=== PATIENT | male | born 1945 | race American Indian/Alaskan Native ===

== ENCOUNTER 2016-11-13 21:20 | Inpatient (IN) | payer MEDICARE ==
[2016-11-13] MEDS ORDERED: PROVENTIL IH ONE (23:17)
[2016-11-13] MEDS ORDERED: ATROVENT IH ONE (23:17)
[2016-11-13] MEDS ORDERED: DELTASONE PO ONE (23:18)
--- NOTE | 2016-11-13 23:18 | XRay Report ---
FINAL REPORT EXAM: XR CHEST ROUTINE 2V HISTORY: Shortness of breath TECHNIQUE: 2 views of the chest. PRIORS: None. FINDINGS: The thoracic aorta is tortuous. Otherwise, the cardiomediastinal silhouette appears normal. The lungs are clear. The bones and soft tissues are unremarkable. IMPRESSION: No evidence of acute cardiopulmonary disease
--- NOTE | 2016-11-13 23:21 | Emergency Department Report ---
HPI - General Chief Complaint: Dyspnea/Respdistress Time Seen by Provider: 11/13/16 22:33 - HPI HPI: This is a 71-year-old Afro-[place] male presents to the emergency department from home with complaint of a three-day history of some shortness of breath. The patient is been having a cough that has not been productive but he does feel like there is some congestion. He denies any chest pain, fever, nausea, vomiting, back pain or diaphoresis. He has not taken anything for symptoms prior to presentation. He is a tobacco smoker and has been for decades. He denies any aggravating or alleviating factors. No recent travel or sick contacts at home. His primary care physician is Dr. Peng but he has not seen them regarding his symptoms. He has a past medical history of CVA with some right-sided weakness and/or deficits but he does ambulate and does not have complete right-sided hemiplegia. He also has a history of hypertension, CHF and high cholesterol. ED Past Medical Hx - Past Medical History Previous Medical History?: Yes Hx Hypertension: Yes Hx CVA: Yes Hx Congestive Heart Failure: Yes Hx Diabetes: No Hx Deep Vein Thrombosis: No Hx Pulmonary Embolism: No Hx Asthma: No Hx COPD: No Hx HIV: No Additional medical history: high chol - Surgical History Past Surgical History?: Yes Additional Surgical History: eye Sx - Social History Smoking Status: Current Every Day Smoker Substance Use Type: Marijuana - Medications Home Medications: Home Medications Medication Instructions Recorded Confirmed Last Taken Type Lisinopril [Zestril TAB] 1 tab PO DAILY 30 Days 10/15/13 11/13/16 03/05/14 Rx Simvastatin 1 tab PO HS 30 Days 10/15/13 11/13/16 03/05/14 Rx Spironolactone [Aldactone] 1 tab PO DAILY 30 Days 10/15/13 11/13/16 03/05/14 Rx Furosemide [Lasix TAB] 40 mg PO QDAY 12/17/14 11/13/16 Unknown History Metoprolol [Lopressor TAB] 50 mg PO DAILY 12/17/14 11/13/16 Unknown History Ranitidine HCl [Zantac 300 MG TAB] 150 tab PO BID 12/17/14 11/13/16 Unknown History Warfarin [Coumadin] 5 mg PO DAILY 12/17/14 11/13/16 Unknown History ED Review of Systems ROS: Stated complaint: SOB Other details as noted in HPI Comment: All other systems reviewed and negative Constitutional: denies: chills, fever Eyes: denies: eye pain, eye discharge, vision change ENT: denies: ear pain, throat pain Respiratory: cough, shortness of breath Cardiovascular: denies: chest pain, edema Gastrointestinal: denies: abdominal pain, nausea, diarrhea Genitourinary: denies: urgency, dysuria Musculoskeletal: denies: back pain, joint swelling, arthralgia Skin: denies: rash, lesions Neurological: denies: headache, weakness, paresthesias Physical Exam - Physical Exam Vital Signs: Vital Signs 11/13/16 11/13/16 22:02 23:13 Temperature 97.9 F Pulse Rate 34 L 56 L Respiratory 20 Rate Blood Pressure 126/77 O2 Sat by Pulse 98 100 Oximetry Physical Exam: GENERAL: The patient is well-developed well-nourished. HEENT: Normocephalic. Atraumatic. Extraocular motions are intact. Patient has moist mucous membranes. Pupils equal reactive to light bilaterally. NECK: Supple. Trachea is midline. CHEST/LUNGS: Mild wheezing throughout the chest. No cough heard during examination. Mild tachypnea but no accessory muscle use. There is no respiratory distress noted. HEART/CARDIOVASCULAR: Regular. Mild to moderate bradycardia. There is no gallop rub or murmur. ABDOMEN: Abdomen is soft, nontender. Patient has normal bowel sounds. There is no abdominal distention. SKIN: Skin is warm and dry. NEURO: The patient is awake, alert, and oriented. The patient is cooperative. The patient has no acute focal neurologic deficits. The patient has normal speech. MUSCULOSKELETAL: There is no tenderness. There is some atrophy to the right upper extremity. There is no limitation range of motion. Radial pulse +2 over 4 bilaterally. Cap refill less than 2 seconds. ED Course Vital Signs 11/13/16 11/13/16 22:02 23:13 Temperature 97.9 F Pulse Rate 34 L 56 L Respiratory 20 Rate Blood Pressure 126/77 O2 Sat by Pulse 98 100 Oximetry ED Medical Decision Making - Lab Data Result diagrams: 11/13/16 22:41 11/13/16 22:41 - EKG Data -: EKG Interpreted by Me EKG shows normal: sinus rhythm (with frequent PVCs and PACs), axis (left axis deviation), intervals, QRS complexes (Q waves to the inferior and anterior leads ), ST-T waves ( nonspecific ST-T changes) Rate: normal - EKG Data When compared to previous EKG there are: previous EKG unavailable Interpretation: other (sinus rhythm with frequent PVCs and PACs, low-voltage QRS , Q waves to the inferior and anterior leads, nonspecific ST-T changes) - Radiology Data Radiology results: image reviewed interpreted by me: Chest x-ray shows some mild hyperinflation of lungs and flattening of the diaphragm. There is no obvious pneumonia. No pneumothorax or pleural effusions. - Medical Decision Making 71-year-old male presents with three-day history of shortness breath. Chest x- ray does not show any pneumonia or pleural effusions but there are some signs of emphysema. This, in conjunction with the patient's long-term tobacco abuse history, raises concern for COPD or emphysema. Top of that, the patient has some mild bronchospasm. He was given a dose of steroids and albuterol/Atrovent breathing treatments. Patient's labs show a elevated BNP but the patient also has some renal insufficiency with a creatinine of 1.9. First troponin negative. The patient is therapeutic on his INR and therefore is low suspicion for a pulmonary embolism as the source of the patient's symptoms. All the patient was in the emergency department he was seen going transiently down into a heart rate of close to 30. He also had some borderline hypotension going into the 80s systolic. He seems to fluctuate and go back towards normal ranges but continues to have some transient bradycardia and hypotension. Patient ambulated throughout the emergency department and did not appear unstable but had some increased shortness of breath and worsening of his vitals. For these reasons the patient will be admitted to the hospital for further evaluation and has been accepted for admission by the hospitalist, Dr. Tenorio. - Differential Diagnosis COPD, CO, pneumonia, CHF Critical Care Time: No Critical care attestation.: If time is entered above; I have spent that time in minutes in the direct care of this critically ill patient, excluding procedure time. ED Disposition Clinical Impression: Tobacco abuse, Shortness of breath, Renal insufficiency, History of CVA ( cerebrovascular accident), Bradycardia Hypotension Qualifiers: Hypotension type: unspecified hypotension type Qualified Code(s): I95.9 - Hypotension, unspecified Disposition: DC-09 OP ADMIT IP TO THIS HOSP Is pt being admited?: Yes Condition: Fair Time of Disposition: 01:31
[2016-11-13 23:22] LABS: Basophils % (Auto) 0.7 % (0.0-1.8); Eosinophils % (Auto) 5.9 % (0.0-4.3); Hematocrit 39.6 % (35.5-45.6); Hemoglobin 12.8 gm/dl (11.8-15.2); Mean Corpuscular HGB Conc 32 % (32-34); Mean Corpuscular Hemoglobin 31 pg (28-32); Mean Corpuscular Volume 96 fl (84-94); Platelet Count 139 K/mm3 (140-440); Red Blood Count 4.12 M/mm3 (3.65-5.03); Red Cell Distribution Width 15.7 % (13.2-15.2); White Blood Count 8.4 K/mm3 (4.5-11.0)
[2016-11-13 23:38] LABS: Anion Gap 19 mmol/L; BUN/Creatinine Ratio 20.52; Blood Urea Nitrogen 39 mg/dL (9-20); Calcium 8.9 mg/dL (8.4-10.2); Carbon Dioxide 25 mmol/L (22-30); Chloride 101.9 mmol/L (98-107); Glucose 84 mg/dL (75-100); Potassium 4.9 mmol/L (3.6-5.0); Sodium 141 mmol/L (137-145)
[2016-11-13 23:49] LABS: INR 3.85 (0.87-1.13)
[2016-11-13 23:50] LABS: Partial Thromboplastin Time 45.1 Sec. (24.2-36.6)
[2016-11-14] MEDS ORDERED: NACL 0.9% 250ML 250 ML IV ONE (01:31)
[2016-11-14] MEDS ORDERED: ROBITUSSIN PO PRN (03:00)
[2016-11-14] MEDS: LEVOPHED DRIP 4 MG/NS 250 ML 4 MG/250 ML BAG IV SCH (03:29)
--- NOTE | 2016-11-14 05:06 | History and Physical Report ---
History of Present Illness Date of examination: 11/14/16 Date of admission: 11/14/16 02:20 Chief complaint: Chief complaint is shortness of breath History of present illness: History of present illness, Patient is a 71-year-old male who has been having shortness of breath at home for 3 days but denied history of chest pain, fever or chills, also patient denied history of nausea and vomiting and also denied history of dizziness but admitted to having nonproductive cough. There is no history of ankle swelling Past History Past Medical History: heart failure, hypertension, hyperlipidemia, renal failure , stroke Past Surgical History: No surgical history Social history: smoking Family history: no significant family history Medications and Allergies Allergies Allergy/AdvReac Type Severity Reaction Status Date / Time No Known Allergies Allergy Verified 12/17/14 21:26 Home Medications Medication Instructions Recorded Confirmed Last Taken Type Lisinopril [Zestril TAB] 1 tab PO DAILY 30 Days 10/15/13 11/13/16 03/05/14 Rx Simvastatin 1 tab PO HS 30 Days 10/15/13 11/13/16 03/05/14 Rx Spironolactone [Aldactone] 1 tab PO DAILY 30 Days 10/15/13 11/13/16 03/05/14 Rx Furosemide [Lasix TAB] 40 mg PO QDAY 12/17/14 11/13/16 Unknown History Metoprolol [Lopressor TAB] 50 mg PO DAILY 12/17/14 11/13/16 Unknown History Ranitidine HCl [Zantac 300 MG TAB] 150 tab PO BID 12/17/14 11/13/16 Unknown History Warfarin [Coumadin] 5 mg PO DAILY 12/17/14 11/13/16 Unknown History Active Meds: Active Medications Albuterol/Ipratropium (Duoneb 0.5 Mg-3 Mg/3 Ml Soln) 1 ampul IH QIDRT DEVON Guaifenesin (Robitussin) 200 mg PO Q4H PRN PRN Reason: Cough Heparin Sodium (Porcine) (Heparin) 5,000 unit SUB-Q Q12HR DEVON Norepinephrine (Levophed Drip 4 Mg/Ns 250 Ml) 4 mg in 250 mls @ 7.5 mls/hr IV TITR DEVON; 2 MCG/MIN PRN Reason: Protocol Last Admin: 11/14/16 03:29 Dose: 2 mcg/min, 7.5 mls/hr Methylprednisolone Sodium Succinate (Solu-Medrol) 40 mg IV Q6H DEVON Last Admin: 11/14/16 03:12 Dose: 40 mg Review of Systems Constitutional: no weight loss, no weight gain, no fever, no chills, no sweats, no night sweats, no anorexia, no fatigue, no weakness, no malaise, no lethargy, no poor appetite, no daytime sleepiness Eyes: bilateral: other (NO BILATERAL EYE SYMPTOMS) Ears, nose, mouth and throat: nasal congestion, no ear pain, no ear discharge, no tinnitis, no decreased hearing, no nose pain, no nasal discharge, no sinus pressure, no sinus pain, no bleeding gums, no dental pain, no mouth pain, no dysphagia, no hoarseness, no sore throat, no swelling in mouth, no swelling in throat, no voice changes, no post-nasal drip, no headache, no vertigo, no pain front of neck, no neck fullness/pressure, no neck lump Cardiovascular: shortness of breath, no chest pain, no orthopnea, no palpitations, no rapid/irregular heart beat, no edema, no syncope, no lightheadedness, no dyspnea on exertion, no paroxysmal nocturnal dyspnea, no claudication, no phlebitis, no high blood pressure, no leg edema, no decreased exercise tolerance Respiratory: cough, shortness of breath, congestion, no cough with sputum, no excessive sputum, no hemoptysis, no dyspnea on exertion, no wheezing, no pleurisy, no pain, no pain on inspiration, no sleep apnea, no respiratory infections, no home oxygen, no other Gastrointestinal: no abdominal pain, no nausea, no vomiting, no diarrhea, no constipation, no change in bowel habits, no hematemesis, no coffee ground emesis , no BRBPR, no melena, no hematochezia, no loss of appetite, no early satiety, no heartburn, no indigestion, no belching, no excessive gas, no jaundice, no dyspepsia/bloating, no early satiety, no lactose intolerance Genitourinary Male: no hematuria, no flank pain, no discharge, no urinary frequency, no urinary hesitancy, no nocturia, no incontinence, no erectile dysfunction, no impotence, no decreased libido, no testicular pain, no testicular lump, no difficulties fathering child, no polyuria, no urinary retention, no kidney stones Rectal: no pain, no incontinence, no bleeding, no itching, no hemorrhoids, no discharge, no flatulence Musculoskeletal: no neck pain, no shooting arm pain, no arm numbness/tingling, no low back pain, no shooting leg pain, no leg numbness/tingling, no redness of joints, no hot joints, no morning stiffness, no muscle weakness, no muscle cramps, no myalgias, no atrophy, no frequent falls, no fractures, no loss of height, no prior amputations, no arthritis Integumentary: no rash, no pruritis, no redness, no sores, no jaundice, no lesions, no darkening of skin, no depigmentation, no dryness, no brittle nails, no striae, no foot/leg ulcers Neurological: weakness, no parathesias, no numbness, no tingling, no seizures, no syncope, no tremors, no headaches, no migraines, no convulsions, no aphasia, no change in speech, no change in mentation, no confusion, no memory loss, no motor disturbance, no sensory deficit, no double vision, no loss of vision, no hearing difficulties, no burning pain Psychiatric: no anxiety, no memory loss, no change in sleep habits, no sleep disturbances, no insomnia, no hypersomnia, no change in appetite, no change in libido, no suicidal ideation, no disorientation, no hallucinations, no paranoia , no depression, no hopelessness, no anhedonia, no anxiety attacks, no difficulties concentrating, no confusion, no irritability, no sadness/ tearfullness, no mood swings Endocrine: no cold intolerance, no heat intolerance, no polyphagia, no excessive thirst, no polydipsia, no polyuria, no nocturia, no excessive sweating , no flushing, no weight change, no increase in ring/shoe/hat size, no proptosis , no deepening of the voice, no thyroid mass, no palpatations, no high blood sugars, no low blood sugars, no recent glucocorticoid use, no fatigue Hematologic/Lymphatic: no easy bruising, no easy bleeding, no lymphadenopathy, no lymphedema, no thrombophilia Allergic/Immunologic: no urticaria, no allergic rhinitis, no persistent infections, no anaphylaxis, no angioedema, no gluten intolerance, no seasonal allergies Exam - Constitutional Vitals: Temp Pulse Resp BP Pulse Ox 97.9 F 60 17 89/60 100 11/13/16 22:02 11/14/16 04:31 11/14/16 04:31 11/14/16 04:45 11/14/16 04:45 General appearance: Present: no acute distress - EENT Eyes: Present: PERRL, EOM intact, mydriasis ENT: clear oral mucosa, dentition normal, oropharyngeal erythema - Neck Neck: Present: supple, normal ROM. Absent: enlarged thyroid, masses or JVD, cervical LAD, carotid bruits - Respiratory Respiratory effort: normal - Cardiovascular Heart Sounds: Present: S1 & S2, gallop. Absent: systolic murmur, diastolic murmur - Extremities Extremities: no ischemia, No edema Peripheral Pulses: within normal limits - Abdominal General gastrointestinal: Present: soft, non-tender, non-distended, normal bowel sounds. Absent: tender, distended, rigid, hepatomegaly, splenomegaly, mass, hernia Male genitourinary: Present: deferred - Rectal Rectal Exam: deferred - Integumentary Integumentary: Present: clear, warm, dry, normal turgor. Absent: erythema, jaundice, clammy, decreased turgor - Musculoskeletal Musculoskeletal: right sided weakness - Psychiatric Psychiatric: appropriate mood/affect Results - Labs CBC & Chem 7: 11/13/16 22:41 11/13/16 22:41 Labs: Laboratory Last Values WBC 8.4 K/mm3 (4.5-11.0) 11/13/16 22:41 RBC 4.12 M/mm3 (3.65-5.03) 11/13/16 22:41 Hgb 12.8 gm/dl (11.8-15.2) 11/13/16 22:41 Hct 39.6 % (35.5-45.6) 11/13/16 22:41 MCV 96 fl (84-94) H 11/13/16 22:41 MCH 31 pg (28-32) 11/13/16 22:41 MCHC 32 % (32-34) 11/13/16 22:41 RDW 15.7 % (13.2-15.2) H 11/13/16 22:41 Plt Count 139 K/mm3 (140-440) L 11/13/16 22:41 Lymph % (Auto) 20.0 % (13.4-35.0) 11/13/16 22:41 [place] % (Auto) 11.1 % (0.0-7.3) H 11/13/16 22:41 Eos % (Auto) 5.9 % (0.0-4.3) H 11/13/16 22:41 Baso % (Auto) 0.7 % (0.0-1.8) 11/13/16 22:41 Lymph # 1.7 K/mm3 (1.2-5.4) 11/13/16 22:41 [place] # 0.9 K/mm3 (0.0-0.8) H 11/13/16 22:41 Eos # 0.5 K/mm3 (0.0-0.4) H 11/13/16 22:41 Baso # 0.1 K/mm3 (0.0-0.1) 11/13/16 22:41 Seg Neutrophils % 62.3 % (40.0-70.0) 11/13/16 22:41 Seg Neutrophils # 5.3 K/mm3 (1.8-7.7) 11/13/16 22:41 PT 38.2 Sec. (12.2-14.9) H 11/13/16 22:41 INR 3.85 (0.87-1.13) H 11/13/16 22:41 APTT 45.1 Sec. (24.2-36.6) H 11/13/16 22:41 Sodium 141 mmol/L (137-145) 11/13/16 22:41 Potassium 4.9 mmol/L (3.6-5.0) 11/13/16 22:41 Chloride 101.9 mmol/L (98-107) 11/13/16 22:41 Carbon Dioxide 25 mmol/L (22-30) 11/13/16 22:41 Anion Gap 19 mmol/L 11/13/16 22:41 BUN 39 mg/dL (9-20) H 11/13/16 22:41 Creatinine 1.9 mg/dL (0.8-1.5) H 11/13/16 22:41 Estimated GFR 42 ml/min 11/13/16 22:41 BUN/Creatinine Ratio 20.52 % 11/13/16 22:41 Glucose 84 mg/dL (75-100) 11/13/16 22:41 Calcium 8.9 mg/dL (8.4-10.2) 11/13/16 22:41 Magnesium 2.30 mg/dL (1.7-2.3) 11/13/16 22:41 Troponin T < 0.010 ng/mL (0.00-0.029) 11/14/16 01:15 NT-Pro-B Natriuret Pep 858.5 pg/mL (0-900) 11/13/16 22:41 TSH 1.720 mlU/mL (0.270-4.200) 11/13/16 22:41 Assessment and Plan - Patient Problems (1) Dyspnea Current Visit: Yes Status: Acute Qualifiers: Dyspnea type: D Plan to address problem: Patient will be admitted to ICU because of low blood pressure and will be on IV Levophed which will be titrated to keep MAP at 65, patient will have 2-D echo done in the morning and will have cardiology consult with Dr. Estevez for management of bradycardia with hypotension and history of CHF.I will be on DuoNeb Patient will have cardiac enzyme checked every 6 hours 2 more levels and will be on DuoNeb 4 times a day, patient will also be on Solu-Medrol 40 mg IV every 12 hours for management of dyspnea in a patient smokes cigarettes (2) Bradycardia Current Visit: Yes Status: Acute (3) Renal insufficiency Current Visit: Yes Status: Acute
--- NOTE | 2016-11-14 06:09 | Event Note ---
Requested by hospitalist to place a Central line in order to initiate pressors given the patient's persistent hypotension recalcitrant to IV fluid Central line note Consent was obtained verbally Location: Right femoral The site was prepped and draped in a sterile fashion Site was anesthetized with lidocaine 1% approximately 3 mL Landmarks identified and needle introduced until return of dark nonpulsatile blood Blood was obtained on first attempt Guidewire introduced using Seldinger technique and triple lumen catheter placed over guidewire There was blood return from all 3 ports Catheter was secured to patient by use of adhesive The patient tolerated procedure well There were no complications
[2016-11-14 07:47] LABS: Creatine Kinase MB 2.4 ng/mL (0.0-4.0)
[2016-11-14 07:49] LABS: Creatine Kinase 123 units/L (55-170)
[2016-11-14] MEDS ORDERED: DUONEB *Not for PRN Use IH SCH (08:00)
[2016-11-14] MEDS ORDERED: PROVENTIL IH PRN (08:05)
--- NOTE | 2016-11-14 08:39 | Consultation ---
History of Present Illness - Reason for Consult Consult date: 11/14/16 acute renal failure - History of Present Illness Mr. Curiel is a 71 yo who presents to the ED with SOB. He reports being in usual state of health until appx four days ago when he began experiencing SOB w/ 1 flight of staris. H denies chest pain, leg swelling and dizziness. He reports cough productive of clear sputum. He denies fever. While in the ED, patient was bradycardic - HR in 30s and hypotensive - SBP in 80s. He was admitted to the ICU for further management. Labs notable for SCr 1.9mg/dL. He has no known history of kidney disease. Past History Past Medical History: heart failure, hypertension, hyperlipidemia, renal failure , stroke Past Surgical History: No surgical history Social history: smoking Family history: no significant family history Medications and Allergies Allergies Allergy/AdvReac Type Severity Reaction Status Date / Time No Known Allergies Allergy Verified 12/17/14 21:26 Home Medications Medication Instructions Recorded Confirmed Last Taken Type Lisinopril [Zestril TAB] 1 tab PO DAILY 30 Days 10/15/13 11/13/16 03/05/14 Rx Simvastatin 1 tab PO HS 30 Days 10/15/13 11/13/16 03/05/14 Rx Spironolactone [Aldactone] 1 tab PO DAILY 30 Days 10/15/13 11/13/16 03/05/14 Rx Furosemide [Lasix TAB] 40 mg PO QDAY 12/17/14 11/13/16 Unknown History Metoprolol [Lopressor TAB] 50 mg PO DAILY 12/17/14 11/13/16 Unknown History Ranitidine HCl [Zantac 300 MG TAB] 150 tab PO BID 12/17/14 11/13/16 Unknown History Warfarin [Coumadin] 5 mg PO DAILY 12/17/14 11/13/16 Unknown History Active Meds: Active Medications Albuterol (Proventil) 2.5 mg IH Q4HRT PRN PRN Reason: Shortness Of Breath Albuterol/Ipratropium (Duoneb 0.5 Mg-3 Mg/3 Ml Soln) 1 ampul IH TIDRT DEVON Guaifenesin (Robitussin) 200 mg PO Q4H PRN PRN Reason: Cough Heparin Sodium (Porcine) (Heparin) 5,000 unit SUB-Q Q12HR DEVON Norepinephrine (Levophed Drip 4 Mg/Ns 250 Ml) 4 mg in 250 mls @ 7.5 mls/hr IV TITR DEVON; 2 MCG/MIN PRN Reason: Protocol Last Admin: 11/14/16 03:29 Dose: 2 mcg/min, 7.5 mls/hr Methylprednisolone Sodium Succinate (Solu-Medrol) 40 mg IV Q6H DEVON Last Admin: 11/14/16 08:36 Dose: 40 mg Exam - Vital Signs Vital signs: Vital Signs Temp Pulse BP Pulse Ox 97.9 F 34 L 126/77 98 11/13/16 22:02 11/13/16 22:02 11/13/16 22:02 11/13/16 22:02 Results - Lab Results 11/14/16 08:45 11/14/16 08:45 Most recent lab results Calcium 8.9 mg/dL (8.4-10.2) 11/13/16 22:41 Magnesium 2.30 mg/dL (1.7-2.3) 11/13/16 22:41 Assessment and Plan Impression: * Acute kidney injury likely secondary to prerenal azotemia due to hypoperfusion in setting of bradycardia/hypotension * Bradycardia * Hypotension * Congestive heart failure Plan: * No acute indication for renal replacement therapy * Continue IVF * Pressors to maintain MAP>65 * Cardiology consultation pending * Will obtain renal u/s, urine lytes and serologic work up * Avoid potential nephrotoxins
[2016-11-14 08:56] LABS: Hematocrit 34.4 % (35.5-45.6); Hemoglobin 11.5 gm/dl (11.8-15.2); Mean Corpuscular HGB Conc 33 % (32-34); Mean Corpuscular Hemoglobin 31 pg (28-32); Mean Corpuscular Volume 94 fl (84-94); Platelet Count 133 K/mm3 (140-440); Red Blood Count 3.66 M/mm3 (3.65-5.03); Red Cell Distribution Width 15.2 % (13.2-15.2); White Blood Count 6.7 K/mm3 (4.5-11.0)
[2016-11-14 09:10] LABS: BUN/Creatinine Ratio 21.25; Calcium 8.4 mg/dL (8.4-10.2); Chloride 105.7 mmol/L (98-107); Potassium 4.9 mmol/L (3.6-5.0)
[2016-11-14] MEDS ORDERED: HEPARIN SUB-Q SCH (10:00)
--- NOTE | 2016-11-14 11:23 | Consultation ---
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 Records shows a cardiac cath, done late 2012, that demonstrated no significant coronary artery disease but an ejection fraction of 10% on echocardiogram. Patient reports he declined a recommendation for ICD therapy. He also has a history of CVA and is on warfarin for anticoagulation. He presents with fatigue and shortness of breath with minimal exertion. While in the ED, patient noted hypotensive and with acute renal failure, BUN/ creatinine of 39/1.9 and admitted for treatment. He is currently in the CCU on pressor support. A chest x-ray reports no acute cardiopulmonary process. His initial ECG shows a sinus bradycardia with frequent PACs and PVCs thus this cardiac consultation. Patient is currently resting in bed and appears comfortable. He denies palpitations and dizziness. There is no chest pain. Laboratory studies shows normal TSH, a normal magnesium and a normal serum potassium. INR of 3.85. Past History Past Medical History: heart failure, hypertension, hyperlipidemia, stroke Past Surgical History: No surgical history Social history: smoking Family history: no significant family history Medications and Allergies Allergies Allergy/AdvReac Type Severity Reaction Status Date / Time No Known Allergies Allergy Verified 12/17/14 21:26 Home Medications Medication Instructions Recorded Confirmed Last Taken Type Lisinopril [Zestril TAB] 1 tab PO DAILY 30 Days 10/15/13 11/13/16 03/05/14 Rx Simvastatin 1 tab PO HS 30 Days 10/15/13 11/13/16 03/05/14 Rx Spironolactone [Aldactone] 1 tab PO DAILY 30 Days 10/15/13 11/13/16 03/05/14 Rx Furosemide [Lasix TAB] 40 mg PO QDAY 12/17/14 11/13/16 Unknown History Metoprolol [Lopressor TAB] 50 mg PO DAILY 12/17/14 11/13/16 Unknown History Ranitidine HCl [Zantac 300 MG TAB] 150 tab PO BID 12/17/14 11/13/16 Unknown History Warfarin [Coumadin] 5 mg PO DAILY 12/17/14 11/13/16 Unknown History Active Meds: Active Medications Albuterol (Proventil) 2.5 mg IH Q4HRT PRN PRN Reason: Shortness Of Breath Albuterol/Ipratropium (Duoneb 0.5 Mg-3 Mg/3 Ml Soln) 1 ampul IH TIDRT DEVON Guaifenesin (Robitussin) 200 mg PO Q4H PRN PRN Reason: Cough Heparin Sodium (Porcine) (Heparin) 5,000 unit SUB-Q Q12HR DEVON Norepinephrine (Levophed Drip 4 Mg/Ns 250 Ml) 4 mg in 250 mls @ 7.5 mls/hr IV TITR DEVON; 2 MCG/MIN PRN Reason: Protocol Last Admin: 11/14/16 03:29 Dose: 2 mcg/min, 7.5 mls/hr Methylprednisolone Sodium Succinate (Solu-Medrol) 40 mg IV Q6H DEVON Last Admin: 11/14/16 08:36 Dose: 40 mg Physical Examination Vital Signs Temp Pulse BP Pulse Ox 97.9 F 34 L 126/77 98 11/13/16 22:02 11/13/16 22:02 11/13/16 22:02 11/13/16 22:02 General appearance: no acute distress HEENT: Positive: PERRL Neck: Positive: trachea midline Cardiac: Positive: Irregularly Regular Lungs: Positive: Decreased Breath Sounds Neuro: Positive: Grossly Intact Results 11/14/16 08:45 11/14/16 08:45 Cardiac Enzymes 11/14/16 Range/Units 07:03 CK-MB (CK-2) 2.4 (0.0-4.0) ng/mL CBC 11/14/16 Range/Units 08:45 WBC 6.7 (4.5-11.0) K/mm3 RBC 3.66 (3.65-5.03) M/mm3 Hgb 11.5 L (11.8-15.2) gm/dl Hct 34.4 L (35.5-45.6) % Plt Count 133 L (140-440) K/mm3 Comprehensive Metabolic Panel 11/14/16 Range/Units 08:45 Sodium 140 (137-145) mmol/L Potassium 4.9 (3.6-5.0) mmol/L Chloride 105.7 (98-107) mmol/L Carbon Dioxide 22 (22-30) mmol/L BUN 34 H (9-20) mg/dL Creatinine 1.6 H (0.8-1.5) mg/dL Glucose 171 H (75-100) mg/dL Calcium 8.4 (8.4-10.2) mg/dL Assessment and Plan Hypotension on pressor support Acute renal failure Dilated CMP EF 10-15% on echo 2013. Patient previously declined ICD therapy. Prior CVA on warfarin as an outpatient INR 3.85 on presentation Sinus bradycardia with frequent PVCs and PACs pt remains asymptomatic normal TSH and Magnesium
[2016-11-14 12:22] LABS: Bilirubin,Urine NEG (Negative); Blood,Urine NEG (Negative); Ketones,Urine NEG (Negative); Leukocyte Esterase,Urine MOD (Negative); Mucus,Urine 2+ /HPF; Nitrite,Urine NEG (Negative); Protein,Urine <15 mg/dL mg/dL (Negative); Urobilinogen,Urine < 2.0 mg/dL (<2.0)
--- NOTE | 2016-11-14 12:33 | Consultation ---
History of Present Illness Consult date: 11/14/16 Requesting physician: NGHIA CLARKE History of present illness: PULMONARY/CCM CONSULT NOTE (Full dictation # [id number]) Please see dictated notes for full details A&P: Acute (likely on Chronic) Respiratory Failure Symptomatic Bradycardia Atrial Fibrillation with slow VR Acute COPD exacerbation YURI with pre-renal azotemia UTI - Volume resuscitation - wean of levophed for MAP >/= 65mmHg - hutchinson culture (? occult sepsis) - begin rocephin & zithromax (re UTI also) - add LABA - adjust solumedrol - continue GI prophylaxis - d/c heparin ......thanks for the consult ....we will follow along Past History Past Medical History: heart failure, hypertension, hyperlipidemia, renal failure , stroke Past Surgical History: No surgical history Social history: smoking Family history: no significant family history Medications and Allergies Allergies Allergy/AdvReac Type Severity Reaction Status Date / Time No Known Allergies Allergy Verified 12/17/14 21:26 Home Medications Medication Instructions Recorded Confirmed Last Taken Type Lisinopril [Zestril TAB] 1 tab PO DAILY 30 Days 10/15/13 11/13/16 03/05/14 Rx Simvastatin 1 tab PO HS 30 Days 10/15/13 11/13/16 03/05/14 Rx Spironolactone [Aldactone] 1 tab PO DAILY 30 Days 10/15/13 11/13/16 03/05/14 Rx Furosemide [Lasix TAB] 40 mg PO QDAY 12/17/14 11/13/16 Unknown History Metoprolol [Lopressor TAB] 50 mg PO DAILY 12/17/14 11/13/16 Unknown History Ranitidine HCl [Zantac 300 MG TAB] 150 tab PO BID 12/17/14 11/13/16 Unknown History Warfarin [Coumadin] 5 mg PO DAILY 12/17/14 11/13/16 Unknown History Active Meds: Active Medications Albuterol (Proventil) 2.5 mg IH Q4HRT PRN PRN Reason: Shortness Of Breath Albuterol/Ipratropium (Duoneb 0.5 Mg-3 Mg/3 Ml Soln) 1 ampul IH TIDRT DEVON Guaifenesin (Robitussin) 200 mg PO Q4H PRN PRN Reason: Cough Heparin Sodium (Porcine) (Heparin) 5,000 unit SUB-Q Q12HR DEVON Norepinephrine (Levophed Drip 4 Mg/Ns 250 Ml) 4 mg in 250 mls @ 7.5 mls/hr IV TITR DEVON; 2 MCG/MIN PRN Reason: Protocol Last Admin: 11/14/16 03:29 Dose: 2 mcg/min, 7.5 mls/hr Methylprednisolone Sodium Succinate (Solu-Medrol) 40 mg IV Q6H DEVON Last Admin: 11/14/16 08:36 Dose: 40 mg Physical Examination Vital signs: Vital Signs Temp Pulse BP Pulse Ox 97.9 F 34 L 126/77 98 11/13/16 22:02 11/13/16 22:02 11/13/16 22:02 11/13/16 22:02 Results - Laboratory Findings CBC and BMP: 11/14/16 08:45 11/14/16 08:45 PT/INR, D-dimer PT 38.2 Sec. (12.2-14.9) H 11/13/16 22:41 INR 3.85 (0.87-1.13) H 11/13/16 22:41 Abnormal lab findings: Abnormal Labs 11/14/16 11/14/16 08:45 08:45 Hgb 11.5 L Hct 34.4 L Plt Count 133 L BUN 34 H Creatinine 1.6 H Glucose 171 H
[2016-11-14] MEDS: DUONEB *Not for PRN Use IH SCH ×2 (14:42→20:08)
[2016-11-14 16:43] LABS: Creatine Kinase MB 2.3 ng/mL (0.0-4.0)
[2016-11-14 16:44] LABS: Creatine Kinase 115 units/L (55-170)
[2016-11-14] MEDS ORDERED: NACL 0.9% 1000 ML 1,000 ML IV SCH (17:00)
[2016-11-14] MEDS: ZITHROMAX PO SCH (17:29)
[2016-11-14] MEDS: ROCEPHIN/NS 1 GM/50 ML 1 GM/50 ML BAG IV SCH (17:30)
[2016-11-14 19:01] LABS: ISTAT Base Excess -4; ISTAT HCO3 21.9; ISTAT PCO2 38.8 (35-45); ISTAT PO2 78 (80-105); ISTAT SO2 95; ISTAT TCO2 23
[2016-11-14] MEDS: BROVANA NEBU IH SCH (20:10)
[2016-11-14] MEDS: PEPCID PO SCH (21:15)
[2016-11-14] MEDS: ZOCOR PO SCH (21:15)
[2016-11-14] MEDS ORDERED: RANITIDINE HCL PO SCH (22:00)
[2016-11-15 06:05] LABS: Hematocrit 32.5 % (35.5-45.6); Hemoglobin 10.4 gm/dl (11.8-15.2); Mean Corpuscular HGB Conc 32 % (32-34); Mean Corpuscular Hemoglobin 30 pg (28-32); Mean Corpuscular Volume 94 fl (84-94); Platelet Count 124 K/mm3 (140-440); Red Blood Count 3.46 M/mm3 (3.65-5.03); Red Cell Distribution Width 15.3 % (13.2-15.2); White Blood Count 12.4 K/mm3 (4.5-11.0)
[2016-11-15 06:15] LABS: INR 3.25 (0.87-1.13)
[2016-11-15 06:47] LABS: Anion Gap 18 mmol/L; Blood Urea Nitrogen 29 mg/dL (9-20); Calcium 8.4 mg/dL (8.4-10.2); Carbon Dioxide 19 mmol/L (22-30); Chloride 107.6 mmol/L (98-107); Glucose 114 mg/dL (75-100); Sodium 140 mmol/L (137-145)
--- NOTE | 2016-11-15 08:12 | Progress Note ---
Assessment and Plan heart failure -Current echocardiogram shows a left ventricular systolic ejection fraction of 25-30%. ECG is a sinus rhythm with frequent PVCs. The patient previously declined ICD therapy. Start BB and ACEi when allowable. Ween pressors as tolerated. hypertension - blood pressure currently low. Supported by pressor therapy. Ween as tolerated. hyperlipidemia - statin therapy recommended Acute renal failure - management per nephrology stroke - ASA and statin therapy recommended. Subjective Date of service: 11/15/16 Interval history: No acute events. Resting comfortably. No chest pain or SOB. Objective Vital Signs Temp Pulse Pulse Resp Resp BP Pulse Ox 11/15/16 07:15 53 L 17 87/64 100 11/15/16 07:00 60 18 92/63 100 11/15/16 06:45 51 L 17 94/63 100 11/15/16 06:30 56 L 17 91/60 100 11/15/16 06:15 53 L 17 86/60 100 11/15/16 06:00 61 16 85/60 100 11/15/16 05:45 51 L 18 90/62 100 11/15/16 05:30 51 L 20 89/58 100 11/15/16 05:15 48 L 23 92/57 100 11/15/16 05:00 50 L 18 92/61 100 11/15/16 04:46 54 L 17 101/55 100 11/15/16 04:30 52 L 15 96/63 100 11/15/16 04:15 46 L 11 L 97/64 100 11/15/16 04:00 56 L 16 90/55 86 11/15/16 03:47 98 F 11/15/16 03:45 45 L 13 90/55 97 11/15/16 03:30 54 L 12 87/59 100 11/15/16 03:15 49 L 16 88/58 100 11/15/16 03:00 49 L 15 85/57 100 11/15/16 02:45 45 L 17 89/56 99 11/15/16 02:30 46 L 18 91/60 100 11/15/16 02:15 48 L 18 90/59 100 11/15/16 02:00 50 L 11 L 88/58 100 11/15/16 01:45 54 L 16 85/58 100 11/15/16 01:30 51 L 17 87/54 100 11/15/16 01:15 49 L 26 H 88/57 100 11/15/16 01:00 52 L 17 86/58 100 11/15/16 00:45 53 L 17 83/56 100 11/15/16 00:30 51 L 16 92/60 100 11/15/16 00:15 51 L 19 88/58 99 11/15/16 00:00 98.1 F 49 L 21 85/54 100 11/14/16 23:45 61 14 96/62 100 11/14/16 23:30 52 L 23 96/62 99 11/14/16 23:15 49 L 18 88/60 100 11/14/16 23:00 47 L 19 85/57 100 11/14/16 22:45 56 L 26 H 95/63 99 11/14/16 22:30 63 15 92/68 99 11/14/16 22:15 53 L 19 81/57 98 11/14/16 22:00 53 L 20 86/51 100 11/14/16 21:57 53 L 21 96/32 100 11/14/16 21:45 61 21 96/32 100 11/14/16 21:30 57 L 20 97/57 100 11/14/16 21:15 52 L 21 95/63 100 11/14/16 21:00 56 L 20 90/61 100 11/14/16 20:45 62 13 87/63 100 11/14/16 20:30 57 L 16 85/58 100 11/14/16 20:15 56 L 15 86/58 100 11/14/16 20:12 99 11/14/16 20:00 98.6 F 54 L 54 L 11 L 16 95/61 98 11/14/16 19:45 73 15 105/69 95 11/14/16 19:31 65 13 96/63 98 11/14/16 19:15 61 15 106/66 99 11/14/16 19:01 79 9 L 107/80 100 11/14/16 18:49 99 11/14/16 18:45 52 L 13 86/60 100 11/14/16 18:30 56 L 19 89/60 98 11/14/16 18:15 55 L 25 H 96/62 99 11/14/16 18:00 56 L 19 93/65 99 11/14/16 17:45 58 L 29 H 97/72 98 07/03/17 17:30 51 L 22 95/69 100 11/14/16 17:15 60 26 H 101/72 99 11/14/16 17:00 67 25 H 107/75 77 L 11/14/16 16:45 97.9 F 72 22 113/72 80 L 11/14/16 16:30 54 L 13 108/69 99 11/14/16 16:15 53 L 25 H 92/65 99 11/14/16 16:00 58 L 11 L 101/71 94 11/14/16 15:45 97.9 F 63 14 83/56 98 11/14/16 15:30 55 L 18 92/66 98 11/14/16 15:15 50 L 18 93/63 98 11/14/16 15:00 51 L 18 97/66 98 11/14/16 14:59 58 L 24 11/14/16 14:45 52 L 20 97/66 100 11/14/16 14:42 51 L 20 11/14/16 14:30 57 L 11 L 104/70 100 11/14/16 14:15 51 L 13 98/68 97 11/14/16 14:00 52 L 16 97/65 98 11/14/16 13:45 50 L 26 H 89/54 98 11/14/16 13:30 61 14 89/62 99 11/14/16 13:15 52 L 22 91/62 70 L 11/14/16 13:00 59 L 25 H 86/59 99 11/14/16 12:45 49 L 29 H 71/33 100 11/14/16 12:30 51 L 11 L 98/66 100 11/14/16 12:15 66 20 108/75 100 11/14/16 12:00 61 23 107/79 100 11/14/16 11:45 52 L 18 92/66 99 11/14/16 11:30 46 L 23 91/60 100 11/14/16 11:25 97.6 F 11/14/16 11:15 52 L 29 H 83/57 98 11/14/16 11:00 51 L 17 84/55 100 11/14/16 10:45 53 L 13 80/55 99 11/14/16 10:31 61 20 91/60 100 11/14/16 10:15 67 11 L 99/63 99 11/14/16 10:00 67 17 92/53 100 11/14/16 09:45 48 L 20 90/61 100 11/14/16 09:30 59 L 8 L 96/67 100 11/14/16 09:15 60 14 91/67 100 11/14/16 09:01 56 L 21 74/39 100 11/14/16 08:45 51 L 9 L 99/63 100 11/14/16 08:30 64 17 92/64 100 11/14/16 08:15 46 L 18 94/65 100 - Physical Examination HEENT: Positive: PERRL Neck: Positive: trachea midline Cardiac: Positive: Reg Rate and Rhythm, S1/S2 Lungs: Positive: Other (course breath sounds bilaterally) Neuro: Positive: Grossly Intact Abdomen: Positive: Soft, Active Bowel Sounds Extremities: Present: normal - Labs and Meds Cardiac Enzymes 11/14/16 Range/Units 12:00 CK-MB (CK-2) 2.3 (0.0-4.0) ng/mL Coagulation 11/15/16 Range/Units 05:20 PT 33.4 H (12.2-14.9) Sec. INR 3.25 H (0.87-1.13) CBC 11/14/16 11/15/16 Range/Units 08:45 05:20 WBC 6.7 12.4 H (4.5-11.0) K/mm3 RBC 3.66 3.46 L (3.65-5.03) M/mm3 Hgb 11.5 L 10.4 L (11.8-15.2) gm/dl Hct 34.4 L 32.5 L (35.5-45.6) % Plt Count 133 L 124 L (140-440) K/mm3 Lymph # 0.8 L (1.2-5.4) K/mm3 Wake # 1.0 H (0.0-0.8) K/mm3 Eos # 0.0 (0.0-0.4) K/mm3 Baso # 0.0 (0.0-0.1) K/mm3 Comprehensive Metabolic Panel 11/14/16 11/15/16 Range/Units 08:45 05:20 Sodium 140 140 (137-145) mmol/L Potassium 4.9 5.0 (3.6-5.0) mmol/L Chloride 105.7 107.6 H (98-107) mmol/L Carbon Dioxide 22 19 L (22-30) mmol/L BUN 34 H 29 H (9-20) mg/dL Creatinine 1.6 H 1.3 (0.8-1.5) mg/dL Glucose 171 H 114 H (75-100) mg/dL Calcium 8.4 8.4 (8.4-10.2) mg/dL
[2016-11-15] MEDS: BROVANA NEBU IH SCH ×2 (09:16→19:24)
[2016-11-15] MEDS: DUONEB *Not for PRN Use IH SCH ×3 (09:16→19:24)
[2016-11-15] MEDS: ZITHROMAX PO SCH (09:30)
[2016-11-15] MEDS: PEPCID PO SCH ×2 (09:30→22:24)
[2016-11-15] MEDS: ROCEPHIN/NS 1 GM/50 ML 1 GM/50 ML BAG IV SCH (09:31)
[2016-11-15] MEDS ORDERED: TYLENOL PO PRN (09:33)
--- NOTE | 2016-11-15 09:46 | Ultrasound Report ---
ULTRASOUND RENAL BILATERAL HISTORY: Acute renal insufficiency. TECHNIQUE: transabdominal ultrasound with color Doppler interrogation. FINDINGS: The right kidney measures 9.3 x 4.0 x 4.2cm. Right renal cortex: 1.5cm. The left kidney measures 9.4 x 6.2 x 3.7cm. Left renal cortex: 1.4cm. Both kidneys are normal size and position but demonstrate increased parenchymal echotexture consistent with nonspecific renal parenchymal disease. There are bilateral renal cysts. There are 3 cysts in the mid to superior right kidney ranging from 0.9 cm to 2.7 cm. There are 4 cysts in the mid to inferior left kidney ranging from 0.9 cm to 1.4 cm. No evidence for hypervascular mass, shadowing calculus, hydronephrosis or perinephric fluid. Images through the bladder are unremarkable. There is however a rounded soft tissue masslike structure measuring up to 9.5 cm to the right of the bladder. I cannot exclude a mass. Consider further evaluation with CT with IV contrast if renal function allows. IMPRESSION: Renal parenchymal disease. Bilateral renal cysts. Questionable mass adjacent to the bladder as outlined above. Further imaging is recommended.
--- NOTE | 2016-11-15 13:04 | Progress Note ---
Assessment and Plan Impression: * Acute kidney injury likely secondary to prerenal azotemia due to hypoperfusion in setting of bradycardia/hypotension * Bradycardia * Hypotension * Congestive heart failure - LVEF 25-30% * Questionable bladder mass Plan: * No acute indication for renal replacement therapy. Renal function improved * Cardiology recommendations reviewed * Will need CT abd/pelvis re: ?bladder mass * Pressors to maintain MAP>65 * Avoid potential nephrotoxins Subjective Date of service: 11/15/16 Interval history: Patient has no complaints Objective - Vital Signs Vital signs: Vital Signs - 12hr 11/15/16 11/15/16 11/15/16 01:15 01:30 01:45 Temperature Pulse Rate 49 L 51 L 54 L Pulse Rate [ Bilateral Throughout] Respiratory 26 H 17 16 Rate Respiratory Rate [Bilateral Throughout] Blood Pressure 88/57 87/54 85/58 O2 Sat by Pulse 100 100 100 Oximetry 11/15/16 11/15/16 11/15/16 02:00 02:15 02:30 Temperature Pulse Rate 50 L 48 L 46 L Pulse Rate [ Bilateral Throughout] Respiratory 11 L 18 18 Rate Respiratory Rate [Bilateral Throughout] Blood Pressure 88/58 90/59 91/60 O2 Sat by Pulse 100 100 100 Oximetry 11/15/16 11/15/16 11/15/16 02:45 03:00 03:15 Temperature Pulse Rate 45 L 49 L 49 L Pulse Rate [ Bilateral Throughout] Respiratory 17 15 16 Rate Respiratory Rate [Bilateral Throughout] Blood Pressure 89/56 85/57 88/58 O2 Sat by Pulse 99 100 100 Oximetry 11/15/16 11/15/16 11/15/16 03:30 03:45 03:47 Temperature 98 F Pulse Rate 54 L 45 L Pulse Rate [ Bilateral Throughout] Respiratory 12 13 Rate Respiratory Rate [Bilateral Throughout] Blood Pressure 87/59 90/55 O2 Sat by Pulse 100 97 Oximetry 11/15/16 11/15/16 11/15/16 04:00 04:15 04:30 Temperature Pulse Rate 56 L 46 L 52 L Pulse Rate [ Bilateral Throughout] Respiratory 16 11 L 15 Rate Respiratory Rate [Bilateral Throughout] Blood Pressure 90/55 97/64 96/63 O2 Sat by Pulse 86 100 100 Oximetry 11/15/16 11/15/16 11/15/16 04:46 05:00 05:15 Temperature Pulse Rate 54 L 50 L 48 L Pulse Rate [ Bilateral Throughout] Respiratory 17 18 23 Rate Respiratory Rate [Bilateral Throughout] Blood Pressure 101/55 92/61 92/57 O2 Sat by Pulse 100 100 100 Oximetry 11/15/16 11/15/16 11/15/16 05:30 05:45 06:00 Temperature Pulse Rate 51 L 51 L 61 Pulse Rate [ Bilateral Throughout] Respiratory 20 18 16 Rate Respiratory Rate [Bilateral Throughout] Blood Pressure 89/58 90/62 85/60 O2 Sat by Pulse 100 100 100 Oximetry 11/15/16 11/15/16 11/15/16 06:15 06:30 06:45 Temperature Pulse Rate 53 L 56 L 51 L Pulse Rate [ Bilateral Throughout] Respiratory 17 17 17 Rate Respiratory Rate [Bilateral Throughout] Blood Pressure 86/60 91/60 94/63 O2 Sat by Pulse 100 100 100 Oximetry 11/15/16 11/15/16 11/15/16 07:00 07:15 07:30 Temperature Pulse Rate 60 53 L 57 L Pulse Rate [ Bilateral Throughout] Respiratory 18 17 15 Rate Respiratory Rate [Bilateral Throughout] Blood Pressure 92/63 87/64 91/63 O2 Sat by Pulse 100 100 Oximetry 11/15/16 11/15/16 11/15/16 07:45 08:00 08:16 Temperature 98.0 F Pulse Rate 50 L 47 L 59 L Pulse Rate [ Bilateral Throughout] Respiratory 20 16 16 Rate Respiratory Rate [Bilateral Throughout] Blood Pressure 92/63 91/64 108/66 O2 Sat by Pulse 100 100 100 Oximetry 11/15/16 11/15/16 11/15/16 08:30 08:45 09:16 Temperature Pulse Rate 56 L 49 L Pulse Rate [ 53 L Bilateral Throughout] Respiratory 14 18 Rate Respiratory 18 Rate [Bilateral Throughout] Blood Pressure 98/65 94/65 O2 Sat by Pulse 99 99 Oximetry 11/15/16 11/15/16 09:17 09:30 Temperature Pulse Rate Pulse Rate [ 52 L Bilateral Throughout] Respiratory Rate Respiratory 18 Rate [Bilateral Throughout] Blood Pressure O2 Sat by Pulse 100 Oximetry - General Appearance General appearance: well-developed, well-nourished, frail EENT: ATNC Respiratory: Present: Clear to Ascultation Cardiology: bradycardia Gastrointestinal: normal, no tenderness, no distended Integumentary: no rash Musculoskeletal: other (no edema) Psychiatric: cooperative - Lab 11/15/16 05:20 11/15/16 05:20 Most recent lab results Calcium 8.4 mg/dL (8.4-10.2) 11/15/16 05:20 Phosphorus 2.60 mg/dL (2.5-4.5) 11/15/16 05:20 Magnesium 2.10 mg/dL (1.7-2.3) 11/15/16 05:20 Urine Creatinine 148.5 mg/dL (0.1-20.0) H 11/14/16 11:45 Urine Sodium 66 mEq/L 11/14/16 11:45
--- NOTE | 2016-11-15 13:40 | Progress Note ---
Assessment and Plan - Patient Problems (1) Acute exacerbation of chronic obstructive pulmonary disease (COPD) Current Visit: Yes Status: Acute Plan to address problem: - continue systemic steroids which may also help with blood pressures - CXR shows COPD and barrel chest noted - continue supplemental oxygen to keep sats > 94% - will need outpatient PFT's and pulmonary clinic f/up (2) Bradycardia Current Visit: Yes Status: Acute Plan to address problem: - remains on levophed drip - avoid beta blockade - per cardiology (3) Hypotension Current Visit: Yes Status: Acute Qualifiers: Hypotension type: unspecified hypotension type Trimester: T Qualified Code(s): I95.9 - Hypotension, unspecified Plan to address problem: - will add midodrine - wean off levophed thereafter - will begin dobutrex if still pressor dependent after midodrine added while watching for arrythmia's (4) History of CVA (cerebrovascular accident) Current Visit: Yes Status: Chronic Plan to address problem: - no new focal infiltrates (5) Non-ischemic cardiomyopathy Current Visit: No Status: Chronic Plan to address problem: - as above - per cardiology otherwise (6) Discharge planning issues Current Visit: Yes Status: Acute Plan to address problem: - remains critically ill on life sustaining interventions including vasopressors and at risk for further deterioration including ..30' CCT Subjective Date of service: 11/15/16 Principal diagnosis: Symptomatic Bradycardia; Acute COPD exacerbation; YURI Interval history: Seen and examined at bedside; 24 hour events reviewed; nursing and respiratory care staff consulted; no adverse overnight events reported to me; remains on levophed at 2mics/min but not tolerating weaning; denies acute chest pains or increased SOB; no N/V/F/C Objective Vital Signs - 12hr 11/15/16 11/15/16 11/15/16 01:45 02:00 02:15 Temperature Pulse Rate 54 L 50 L 48 L Pulse Rate [ Bilateral Throughout] Respiratory 16 11 L 18 Rate Respiratory Rate [Bilateral Throughout] Blood Pressure 85/58 88/58 90/59 O2 Sat by Pulse 100 100 100 Oximetry 11/15/16 11/15/16 11/15/16 02:30 02:45 03:00 Temperature Pulse Rate 46 L 45 L 49 L Pulse Rate [ Bilateral Throughout] Respiratory 18 17 15 Rate Respiratory Rate [Bilateral Throughout] Blood Pressure 91/60 89/56 85/57 O2 Sat by Pulse 100 99 100 Oximetry 11/15/16 11/15/16 11/15/16 03:15 03:30 03:45 Temperature Pulse Rate 49 L 54 L 45 L Pulse Rate [ Bilateral Throughout] Respiratory 16 12 13 Rate Respiratory Rate [Bilateral Throughout] Blood Pressure 88/58 87/59 90/55 O2 Sat by Pulse 100 100 97 Oximetry 11/15/16 11/15/16 11/15/16 03:47 04:00 04:15 Temperature 98 F Pulse Rate 56 L 46 L Pulse Rate [ Bilateral Throughout] Respiratory 16 11 L Rate Respiratory Rate [Bilateral Throughout] Blood Pressure 90/55 97/64 O2 Sat by Pulse 86 100 Oximetry 11/15/16 11/15/16 11/15/16 04:30 04:46 05:00 Temperature Pulse Rate 52 L 54 L 50 L Pulse Rate [ Bilateral Throughout] Respiratory 15 17 18 Rate Respiratory Rate [Bilateral Throughout] Blood Pressure 96/63 101/55 92/61 O2 Sat by Pulse 100 100 100 Oximetry 11/15/16 11/15/16 11/15/16 05:15 05:30 05:45 Temperature Pulse Rate 48 L 51 L 51 L Pulse Rate [ Bilateral Throughout] Respiratory 23 20 18 Rate Respiratory Rate [Bilateral Throughout] Blood Pressure 92/57 89/58 90/62 O2 Sat by Pulse 100 100 100 Oximetry 11/15/16 11/15/16 11/15/16 06:00 06:15 06:30 Temperature Pulse Rate 61 53 L 56 L Pulse Rate [ Bilateral Throughout] Respiratory 16 17 17 Rate Respiratory Rate [Bilateral Throughout] Blood Pressure 85/60 86/60 91/60 O2 Sat by Pulse 100 100 100 Oximetry 11/15/16 11/15/16 11/15/16 06:45 07:00 07:15 Temperature Pulse Rate 51 L 60 53 L Pulse Rate [ Bilateral Throughout] Respiratory 17 18 17 Rate Respiratory Rate [Bilateral Throughout] Blood Pressure 94/63 92/63 87/64 O2 Sat by Pulse 100 100 100 Oximetry 11/15/16 11/15/16 11/15/16 07:30 07:45 08:00 Temperature 98.0 F Pulse Rate 57 L 50 L 47 L Pulse Rate [ Bilateral Throughout] Respiratory 15 20 16 Rate Respiratory Rate [Bilateral Throughout] Blood Pressure 91/63 92/63 91/64 O2 Sat by Pulse 100 100 Oximetry 11/15/16 11/15/16 11/15/16 08:16 08:30 08:45 Temperature Pulse Rate 59 L 56 L 49 L Pulse Rate [ Bilateral Throughout] Respiratory 16 14 18 Rate Respiratory Rate [Bilateral Throughout] Blood Pressure 108/66 98/65 94/65 O2 Sat by Pulse 100 99 99 Oximetry 11/15/16 11/15/16 11/15/16 09:16 09:17 09:30 Temperature Pulse Rate Pulse Rate [ 53 L 52 L Bilateral Throughout] Respiratory Rate Respiratory 18 18 Rate [Bilateral Throughout] Blood Pressure O2 Sat by Pulse 100 Oximetry Constitutional: no acute distress, alert Eyes: non-icteric ENT: oropharynx moist Neck: supple, no lymphadenopathy Effort: mildly labored Ascultation: Bilateral: clear, diminished breath sounds Cardiovascular: irregular rhythm Gastrointestinal: normoactive bowel sounds, soft, non-tender, non-distended Integumentary: normal Extremities: no cyanosis, no edema, pulses normal, no ischemia or petechiae Neurologic: normal mental status, non-focal exam, pupils equal and round, motor strength normal and Psychiatric: mood appropriate, affect normal CBC and BMP: 11/15/16 05:20 11/15/16 05:20 ABG, PT/INR, D-dimer: ABG POC ABG pH 7.360 (7.35-7.45) 11/14/16 18:49 POC ABG pCO2 38.8 (35-45) 11/14/16 18:49 POC ABG pO2 78 (80-105) L 11/14/16 18:49 POC ABG HCO3 21.9 11/14/16 18:49 POC ABG Total CO2 23 11/14/16 18:49 POC ABG O2 Sat 95 11/14/16 18:49 PT/INR, D-dimer PT 33.4 Sec. (12.2-14.9) H 11/15/16 05:20 INR 3.25 (0.87-1.13) H 11/15/16 05:20 Abnormal lab findings: Abnormal Labs 11/14/16 11/14/16 11/14/16 08:45 08:45 11:45 WBC RBC Hgb 11.5 L Hct 34.4 L RDW Plt Count 133 L Lymph % (Auto) Terry % (Auto) Lymph # Terry # Seg Neutrophils % Seg Neutrophils # PT INR POC ABG pO2 Chloride Carbon Dioxide BUN 34 H Creatinine 1.6 H Glucose 171 H Lactic Acid Urine WBC (Auto) 21.0 H Urine Creatinine 11/14/16 11/14/16 11/14/16 11:45 17:12 18:49 WBC RBC Hgb Hct RDW Plt Count Lymph % (Auto) Terry % (Auto) Lymph # Terry # Seg Neutrophils % Seg Neutrophils # PT INR POC ABG pO2 78 L Chloride Carbon Dioxide BUN Creatinine Glucose Lactic Acid 2.10 H* Urine WBC (Auto) Urine Creatinine 148.5 H 11/15/16 11/15/16 11/15/16 05:20 05:20 05:20 WBC 12.4 H RBC 3.46 L Hgb 10.4 L Hct 32.5 L RDW 15.3 H Plt Count 124 L Lymph % (Auto) 6.1 L Terry % (Auto) 7.8 H Lymph # 0.8 L Terry # 1.0 H Seg Neutrophils % 86.1 H Seg Neutrophils # 10.7 H PT 33.4 H INR 3.25 H POC ABG pO2 Chloride 107.6 H Carbon Dioxide 19 L BUN 29 H Creatinine Glucose 114 H Lactic Acid Urine WBC (Auto) Urine Creatinine Chest x-ray: image reviewed
--- NOTE | 2016-11-15 13:43 | Progress Note ---
Assessment and Plan Assessment and plan: 71-year-old male with a past medical history of CHF, EF 25%, who presented with 3 days or shortness of breath. Cardiogenic shock Continue IV pressors, we'll attempt to wean off pressors as tolerated Acute on chronic systolic CHF Cardiology input appreciated, patient has refused ICD, Plan so put him on beta tito and TYLOR inhibitor however his blood pressure being low and he is unable to tolerate it Acute on chronic kidney injury/vasomotor nephropathy Nephrology input appreciated, renal function likely improve due to hydration and improved perfusion due to pressors. Discontinue IV fluids Bradycardia Avoid beta blockers and AV imtiaz blockers COPD exacerbation Pulmonology input appreciated, continue steroids and nebulizers and antibiotics Pyuria Highly doubt UTI as pyuria is mild, patient is already on antibiotics, obtain urine culture Bladder mass? Questionable bladder mass seen on ultrasound We will obtain CT abdomen and pelvis to better evaluate this History of stroke with right hemiparesis Continue aspirin and Plavix DVT prophylaxis Lovenox The high probability of a clinically significant, sudden or life threatening deterioration of the [cardiovascular and pulmonary] system(s) required my full and direct attention, intervention and personal management. The aggregate critical care time was [32] minutes. This time is in addition to time spent performing reported procedures but includes the following: [] Data Review and interpretation [] Patient assessment and monitoring of vital signs [] Documentation [] Medication orders and management History Interval history: He continues to complain of dyspnea on exertion, he has some generalized weakness. But admits to feeling better today Hospitalist Physical - Physical exam Narrative exam: General: mild distress due to Sob, cachectic HEENT: MMM, EOMI cardiac: S1-S2 heard lungs: decreased air entry, dull in bases bilaterally abdomen: soft, nontender, nondistended bowel sounds positive extremities: no edema clubbing or cyanosis Skin: no rash or lesion Neuro: Right hemiparesis Psych: appropriate behavior and mood, cognition intact - Constitutional Vitals: Temp Pulse Resp BP Pulse Ox 98.0 F 52 L 18 94/65 100 11/15/16 08:00 11/15/16 09:30 11/15/16 09:30 11/15/16 08:45 11/15/16 09:17 General appearance: Present: no acute distress Results - Labs CBC & Chem 7: 11/15/16 05:20 11/15/16 05:20 Labs: Laboratory Last Values WBC 12.4 K/mm3 (4.5-11.0) H 11/15/16 05:20 RBC 3.46 M/mm3 (3.65-5.03) L 11/15/16 05:20 Hgb 10.4 gm/dl (11.8-15.2) L 11/15/16 05:20 Hct 32.5 % (35.5-45.6) L 11/15/16 05:20 MCV 94 fl (84-94) 11/15/16 05:20 MCH 30 pg (28-32) 11/15/16 05:20 MCHC 32 % (32-34) 11/15/16 05:20 RDW 15.3 % (13.2-15.2) H 11/15/16 05:20 Plt Count 124 K/mm3 (140-440) L 11/15/16 05:20 Lymph % (Auto) 6.1 % (13.4-35.0) L 11/15/16 05:20 Alfalfa % (Auto) 7.8 % (0.0-7.3) H 11/15/16 05:20 Eos % (Auto) 0.0 % (0.0-4.3) 11/15/16 05:20 Baso % (Auto) 0.0 % (0.0-1.8) 11/15/16 05:20 Lymph # 0.8 K/mm3 (1.2-5.4) L 11/15/16 05:20 Alfalfa # 1.0 K/mm3 (0.0-0.8) H 11/15/16 05:20 Eos # 0.0 K/mm3 (0.0-0.4) 11/15/16 05:20 Baso # 0.0 K/mm3 (0.0-0.1) 11/15/16 05:20 Seg Neutrophils % 86.1 % (40.0-70.0) H 11/15/16 05:20 Seg Neutrophils # 10.7 K/mm3 (1.8-7.7) H 11/15/16 05:20 PT 33.4 Sec. (12.2-14.9) H 11/15/16 05:20 INR 3.25 (0.87-1.13) H 11/15/16 05:20 APTT 45.1 Sec. (24.2-36.6) H 11/13/16 22:41 POC ABG pH 7.360 (7.35-7.45) 11/14/16 18:49 POC ABG pCO2 38.8 (35-45) 11/14/16 18:49 POC ABG pO2 78 (80-105) L 11/14/16 18:49 POC ABG HCO3 21.9 11/14/16 18:49 POC ABG Total CO2 23 11/14/16 18:49 POC ABG O2 Sat 95 11/14/16 18:49 POC ABG Base Excess -4 11/14/16 18:49 FiO2 28 % 11/14/16 18:49 Sodium 140 mmol/L (137-145) 11/15/16 05:20 Potassium 5.0 mmol/L (3.6-5.0) 11/15/16 05:20 Chloride 107.6 mmol/L (98-107) H 11/15/16 05:20 Carbon Dioxide 19 mmol/L (22-30) L 11/15/16 05:20 Anion Gap 18 mmol/L 11/15/16 05:20 BUN 29 mg/dL (9-20) H 11/15/16 05:20 Creatinine 1.3 mg/dL (0.8-1.5) 11/15/16 05:20 Estimated GFR > 60 ml/min 11/15/16 05:20 BUN/Creatinine Ratio 22.30 % 11/15/16 05:20 Glucose 114 mg/dL (75-100) H 11/15/16 05:20 Lactic Acid 1.70 mmol/L (0.7-2.0) 11/15/16 05:20 Calcium 8.4 mg/dL (8.4-10.2) 11/15/16 05:20 Phosphorus 2.60 mg/dL (2.5-4.5) 11/15/16 05:20 Magnesium 2.10 mg/dL (1.7-2.3) 11/15/16 05:20 Total Creatine Kinase 115 units/L (55-170) 11/14/16 12:00 CK-MB (CK-2) 2.3 ng/mL (0.0-4.0) 11/14/16 12:00 CK-MB (CK-2) Rel Index 2.0 (0-4) 11/14/16 12:00 Troponin T < 0.010 ng/mL (0.00-0.029) 11/14/16 12:00 C-Reactive Protein 0.10 mg/dL (0.00-1.30) 11/14/16 17:12 NT-Pro-B Natriuret Pep 858.5 pg/mL (0-900) 11/13/16 22:41 TSH 1.720 mlU/mL (0.270-4.200) 11/13/16 22:41 Urine Color Yellow (Yellow) 11/14/16 11:45 Urine Turbidity Clear (Clear) 11/14/16 11:45 Urine pH 5.0 (5.0-7.0) 11/14/16 11:45 Ur Specific Normal 1.016 (1.003-1.030) 11/14/16 11:45 Urine Protein <15 mg/dl mg/dL (Negative) 11/14/16 11:45 Urine Glucose (UA) Neg mg/dL (Negative) 11/14/16 11:45 Urine Ketones Neg mg/dL (Negative) 11/14/16 11:45 Urine Blood Neg (Negative) 11/14/16 11:45 Urine Nitrite Neg (Negative) 11/14/16 11:45 Urine Bilirubin Neg (Negative) 11/14/16 11:45 Urine Urobilinogen < 2.0 mg/dL (<2.0) 11/14/16 11:45 Ur Leukocyte Esterase Mod (Negative) 11/14/16 11:45 Urine WBC (Auto) 21.0 /HPF (0.0-6.0) H 11/14/16 11:45 Urine RBC (Auto) 1.0 /HPF (0.0-6.0) 11/14/16 11:45 U Epithel Cells (Auto) 1.0 /HPF (0-13.0) 11/14/16 11:45 Urine Mucus 2+ /HPF 11/14/16 11:45 Urine Eosinophils None seen (None Seen) 11/14/16 11:45 Urine Creatinine 148.5 mg/dL (0.1-20.0) H 11/14/16 11:45 Urine Sodium 66 mEq/L 07/03/17 11:45 Hepatitis A IgM Ab Nonreactive (NonReactive) 11/14/16 08:46 Hep Bs Antigen Nonreactive (Negative) 11/14/16 08:46 Hep B Core IgM Ab Non-reactive (NonReactive) 11/14/16 08:46 Hepatitis C Antibody Nonreactive (NonReactive) 11/14/16 08:46
[2016-11-15] MEDS: PROAMATINE PO SCH ×2 (14:51→22:24)
[2016-11-15] MEDS: LEVOPHED DRIP 4 MG/NS 250 ML 4 MG/250 ML BAG IV SCH (14:55)
[2016-11-15] MEDS: LOVENOX SUB-Q SCH (22:24)
[2016-11-15] MEDS: ZOCOR PO SCH (22:24)
[2016-11-16] MEDS: LEVOPHED DRIP 4 MG/NS 250 ML 4 MG/250 ML BAG IV SCH (05:37)
[2016-11-16] MEDS: PROAMATINE PO SCH ×3 (05:39→23:25)
[2016-11-16 08:23] LABS: Hematocrit 33.4 % (35.5-45.6); Hemoglobin 10.7 gm/dl (11.8-15.2); Mean Corpuscular HGB Conc 32 % (32-34); Mean Corpuscular Hemoglobin 30 pg (28-32); Mean Corpuscular Volume 94 fl (84-94); Platelet Count 139 K/mm3 (140-440); Red Blood Count 3.57 M/mm3 (3.65-5.03); Red Cell Distribution Width 15.3 % (13.2-15.2); White Blood Count 16.9 K/mm3 (4.5-11.0)
--- NOTE | 2016-11-16 08:31 | Progress Note ---
Assessment and Plan Impression: * Acute kidney injury likely secondary to prerenal azotemia due to hypoperfusion in setting of bradycardia/hypotension * Bradycardia * Hypotension * Congestive heart failure - LVEF 25-30% * Questionable bladder mass Plan: * No acute indication for renal replacement therapy. Renal function improved * Cardiology recommendations reviewed * Will need CT abd/pelvis re: ?bladder mass * Pressors to maintain MAP>65 * Avoid potential nephrotoxins Subjective Date of service: 11/16/16 Principal diagnosis: Symptomatic Bradycardia; Acute COPD exacerbation; YURI Interval history: Patient has no complaints Objective - Vital Signs Vital signs: Vital Signs - 12hr 11/15/16 11/15/16 11/15/16 20:45 21:00 21:15 Temperature Pulse Rate 60 58 L 52 L Respiratory 21 24 18 Rate Blood Pressure 89/60 85/54 103/63 O2 Sat by Pulse 100 100 100 Oximetry 11/15/16 11/15/16 11/15/16 21:30 21:45 22:00 Temperature Pulse Rate 54 L 52 L 67 Respiratory 23 21 20 Rate Blood Pressure 103/63 92/55 92/55 O2 Sat by Pulse 100 100 100 Oximetry 11/15/16 11/15/16 11/15/16 22:16 22:30 22:46 Temperature Pulse Rate 58 L 57 L 54 L Respiratory 22 21 24 Rate Blood Pressure 97/63 95/57 92/53 O2 Sat by Pulse 100 100 100 Oximetry 11/15/16 11/15/16 11/15/16 23:00 23:16 23:30 Temperature Pulse Rate 51 L 52 L 60 Respiratory 18 22 24 Rate Blood Pressure 94/59 94/59 94/59 O2 Sat by Pulse 100 100 100 Oximetry 11/15/16 11/15/16 11/16/16 23:45 23:52 00:00 Temperature 98.2 F Pulse Rate 45 L 49 L 48 L Respiratory 18 23 15 Rate Blood Pressure 103/64 103/64 103/64 O2 Sat by Pulse 100 100 100 Oximetry 11/16/16 11/16/16 11/16/16 00:15 00:30 00:45 Temperature Pulse Rate 54 L 50 L 49 L Respiratory 18 11 L 17 Rate Blood Pressure 106/68 104/66 100/68 O2 Sat by Pulse 100 100 100 Oximetry 11/16/16 11/16/16 11/16/16 01:00 01:15 01:30 Temperature Pulse Rate 49 L 49 L 48 L Respiratory 21 19 18 Rate Blood Pressure 105/69 105/69 105/69 O2 Sat by Pulse 100 100 100 Oximetry 11/16/16 11/16/16 11/16/16 01:45 02:00 02:15 Temperature Pulse Rate 46 L 47 L 46 L Respiratory 15 22 14 Rate Blood Pressure 105/69 105/69 112/69 O2 Sat by Pulse 100 100 100 Oximetry 11/16/16 11/16/16 11/16/16 02:30 02:45 03:00 Temperature Pulse Rate 46 L 47 L 47 L Respiratory 21 15 17 Rate Blood Pressure 117/69 119/72 126/68 O2 Sat by Pulse 100 100 100 Oximetry 11/16/16 11/16/16 11/16/16 03:15 03:30 03:45 Temperature Pulse Rate 61 45 L 49 L Respiratory 16 20 20 Rate Blood Pressure 117/68 114/72 119/76 O2 Sat by Pulse 100 100 100 Oximetry 11/16/16 11/16/16 11/16/16 04:00 04:15 04:30 Temperature 97.5 F L Pulse Rate 47 L 45 L 49 L Respiratory 21 19 19 Rate Blood Pressure 119/72 109/64 113/73 O2 Sat by Pulse 100 100 100 Oximetry 11/16/16 11/16/16 11/16/16 04:45 05:00 08:00 Temperature 97.7 F Pulse Rate 49 L 46 L Respiratory 17 17 Rate Blood Pressure 116/72 115/65 O2 Sat by Pulse 100 100 Oximetry - General Appearance General appearance: well-developed EENT: ATNC Cardiology: bradycardia Gastrointestinal: normal, no tenderness, no distended Integumentary: no rash Psychiatric: cooperative - Lab 11/16/16 08:09 11/16/16 08:09 Most recent lab results Calcium 8.4 mg/dL (8.4-10.2) 11/15/16 05:20 Phosphorus 2.60 mg/dL (2.5-4.5) 11/15/16 05:20 Magnesium 2.10 mg/dL (1.7-2.3) 11/15/16 05:20 Urine Creatinine 148.5 mg/dL (0.1-20.0) H 11/14/16 11:45 Urine Sodium 66 mEq/L 11/14/16 11:45
[2016-11-16 08:35] LABS: INR 2.76 (0.87-1.13)
[2016-11-16 08:39] LABS: Alanine Aminotransferase 69 units/L (7-56); Albumin 3.8 g/dL (3.9-5); Albumin/Globulin Ratio 1.7 %; Alkaline Phosphatase 36 units/L (35-129); Anion Gap 21 mmol/L; BUN/Creatinine Ratio 17.69; Bilirubin,Direct < 0.2 mg/dL (0-0.2); Blood Urea Nitrogen 23 mg/dL (9-20); Calcium 8.4 mg/dL (8.4-10.2); Carbon Dioxide 20 mmol/L (22-30); Chloride 105.6 mmol/L (98-107); Glucose 117 mg/dL (75-100); Potassium 5.1 mmol/L (3.6-5.0); Sodium 141 mmol/L (137-145); Total Protein 6.1 g/dL (6.3-8.2)
[2016-11-16] MEDS: BROVANA NEBU IH SCH ×2 (08:47→20:12)
[2016-11-16] MEDS: DUONEB *Not for PRN Use IH SCH ×3 (08:48→20:12)
[2016-11-16] MEDS: ROCEPHIN/NS 1 GM/50 ML 1 GM/50 ML BAG IV SCH (09:27)
[2016-11-16 09:28] LABS: Basophils % (Manual) 0 % (0.0-1.8); Blastocytes % (Manual) 0 %; Eosinophils % (Manual) 0 % (0.0-4.3)
[2016-11-16 09:29] LABS: Acanthocytes Rare; Anisocytosis 1+; Burr Cells 1+; Diff Status Complete; Elliptocytes Few; Helmet Cells Rare; Ovalocytes 1+; Target Cells Rare
[2016-11-16] MEDS: ZITHROMAX PO SCH (09:29)
[2016-11-16] MEDS: PEPCID PO SCH ×2 (09:29→23:21)
--- NOTE | 2016-11-16 11:13 | Progress Note ---
Assessment and Plan Assessment and plan: 71-year-old male with a past medical history of CHF, EF 25%, who presented with 3 days or shortness of breath. Cardiogenic shock Midodrin was initiated, attempted to wean him off Levophed drip today, but became hypotensive, therefore Levophed is being restarted. We'll discuss with cardiology if patiently better served using dobutamine versus milrinone drip. Acute on chronic systolic CHF Cardiology input appreciated, patient has refused ICD, Plan so put him on beta tito and TYLOR inhibitor however his blood pressure being low and he is unable to tolerate it Acute on chronic kidney injury/vasomotor nephropathy Nephrology input appreciated, renal function likely improve due to hydration and improved perfusion due to pressors. 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 Questionable bladder mass seen on ultrasound We will obtain CT abdomen and pelvis to better evaluate this History of stroke with right hemiparesis Continue aspirin and Plavix DVT prophylaxis Lovenox The high probability of a clinically significant, sudden or life threatening deterioration of the [cardiovascular and pulmonary] system(s) required my full and direct attention, intervention and personal management. The aggregate critical care time was [32] minutes. This time is in addition to time spent performing reported procedures but includes the following: [] Data Review and interpretation [] Patient assessment and monitoring of vital signs [] Documentation [] Medication orders and management History Interval history: He continues to complain of dyspnea on exertion, he has some generalized weakness. But admits to feeling better today Hospitalist Physical - Physical exam Narrative exam: General: mild distress due to Sob, cachectic HEENT: MMM, EOMI cardiac: S1-S2 heard lungs: decreased air entry, dull in bases bilaterally abdomen: soft, nontender, nondistended bowel sounds positive extremities: no edema clubbing or cyanosis Skin: no rash or lesion Neuro: Right hemiparesis Psych: appropriate behavior and mood, cognition intact - Constitutional Vitals: Temp Pulse Resp BP Pulse Ox 97.7 F 53 L 18 115/65 97 11/16/16 08:00 11/16/16 09:10 11/16/16 09:10 11/16/16 05:00 11/16/16 08:46 General appearance: Present: no acute distress Results - Labs CBC & Chem 7: 11/16/16 08:09 11/16/16 08:09 Labs: Laboratory Last Values WBC 16.9 K/mm3 (4.5-11.0) H 11/16/16 08:09 RBC 3.57 M/mm3 (3.65-5.03) L 11/16/16 08:09 Hgb 10.7 gm/dl (11.8-15.2) L 11/16/16 08:09 Hct 33.4 % (35.5-45.6) L 11/16/16 08:09 MCV 94 fl (84-94) 11/16/16 08:09 MCH 30 pg (28-32) 11/16/16 08:09 MCHC 32 % (32-34) 11/16/16 08:09 RDW 15.3 % (13.2-15.2) H 11/16/16 08:09 Plt Count 139 K/mm3 (140-440) L 11/16/16 08:09 Lymph % (Auto) 6.1 % (13.4-35.0) L 11/15/16 05:20 Christian % (Auto) 7.8 % (0.0-7.3) H 11/15/16 05:20 Eos % (Auto) 0.0 % (0.0-4.3) 11/15/16 05:20 Baso % (Auto) 0.0 % (0.0-1.8) 11/15/16 05:20 Lymph # 0.8 K/mm3 (1.2-5.4) L 11/15/16 05:20 Christian # 1.0 K/mm3 (0.0-0.8) H 11/15/16 05:20 Eos # 0.0 K/mm3 (0.0-0.4) 11/15/16 05:20 Baso # 0.0 K/mm3 (0.0-0.1) 11/15/16 05:20 Add Manual Diff Complete 11/16/16 08:09 Total Counted 100 11/16/16 08:09 Seg Neutrophils % Commercial Truck Driver 11/16/16 08:09 Seg Neuts % (Manual) 92.0 % (40.0-70.0) H 11/16/16 08:09 Band Neutrophils % 2.0 % 11/16/16 08:09 Lymphocytes % (Manual) 5.0 % (13.4-35.0) L 11/16/16 08:09 Reactive Lymphs % (Man) 0 % 11/16/16 08:09 Monocytes % (Manual) 1.0 % (0.0-7.3) 11/16/16 08:09 Eosinophils % (Manual) 0 % (0.0-4.3) 11/16/16 08:09 Basophils % (Manual) 0 % (0.0-1.8) 11/16/16 08:09 Metamyelocytes % 0 % 11/16/16 08:09 Myelocytes % 0 % 11/16/16 08:09 Promyelocytes % 0 % 11/16/16 08:09 Blast Cells % 0 % 11/16/16 08:09 Nucleated RBC % Not Reportable 11/16/16 08:09 Seg Neutrophils # 10.7 K/mm3 (1.8-7.7) H 11/15/16 05:20 Seg Neutrophils # Man 15.5 K/mm3 (1.8-7.7) H 11/16/16 08:09 Band Neutrophils # 0.3 K/mm3 11/16/16 08:09 Lymphocytes # (Manual) 0.8 K/mm3 (1.2-5.4) L 11/16/16 08:09 Abs React Lymphs (Man) 0.0 K/mm3 11/16/16 08:09 Monocytes # (Manual) 0.2 K/mm3 (0.0-0.8) 11/16/16 08:09 Eosinophils # (Manual) 0.0 K/mm3 (0.0-0.4) 11/16/16 08:09 Basophils # (Manual) 0.0 K/mm3 (0.0-0.1) 11/16/16 08:09 Metamyelocytes # 0.0 K/mm3 11/16/16 08:09 Myelocytes # 0.0 K/mm3 11/16/16 08:09 Promyelocytes # 0.0 K/mm3 11/16/16 08:09 Blast Cells # 0.0 K/mm3 11/16/16 08:09 WBC Morphology Not Reportable 11/16/16 08:09 Hypersegmented Neuts Not Reportable 11/16/16 08:09 Hyposegmented Neuts Not Reportable 11/16/16 08:09 Hypogranular Neuts Not Reportable 11/16/16 08:09 Smudge Cells Not Reportable 11/16/16 08:09 Toxic Granulation Not Reportable 11/16/16 08:09 Toxic Vacuolation Not Reportable 11/16/16 08:09 Dohle Bodies Not Reportable 11/16/16 08:09 Pelger-Huet Anomaly Not Reportable 11/16/16 08:09 Rosetta Rods Not Reportable 11/16/16 08:09 Platelet Estimate Appears normal 11/16/16 08:09 Clumped Platelets Not Reportable 11/16/16 08:09 Plt Clumps, EDTA Not Reportable 11/16/16 08:09 Large Platelets Not Reportable 11/16/16 08:09 Giant Platelets Not Reportable 11/16/16 08:09 Platelet Satelliting Not Reportable 11/16/16 08:09 Plt Morphology Comment Not Reportable 11/16/16 08:09 RBC Morphology Not Reportable 11/16/16 08:09 Dimorphic RBCs Not Reportable 11/16/16 08:09 Polychromasia Not Reportable 11/16/16 08:09 Hypochromasia Not Reportable 11/16/16 08:09 Poikilocytosis Not Reportable 11/16/16 08:09 Anisocytosis 1+ 11/16/16 08:09 Microcytosis Not Reportable 11/16/16 08:09 Macrocytosis Not Reportable 11/16/16 08:09 Spherocytes Not Reportable 11/16/16 08:09 Pappenheimer Bodies Not Reportable 11/16/16 08:09 Sickle Cells Not Reportable 11/16/16 08:09 Target Cells Rare 11/16/16 08:09 Tear Drop Cells Not Reportable 11/16/16 08:09 Ovalocytes 1+ 11/16/16 08:09 Helmet Cells Rare 11/16/16 08:09 [place] Bodies Not Reportable 11/16/16 08:09 [place] Rings Not Reportable 11/16/16 08:09 [place] Cells 1+ 11/16/16 08:09 Bite Cells Not Reportable 11/16/16 08:09 Crenated Cell Not Reportable 11/16/16 08:09 Elliptocytes Few 11/16/16 08:09 Acanthocytes (Spur) Rare 11/16/16 08:09 Rouleaux Not Reportable 11/16/16 08:09 Hemoglobin C Crystals Not Reportable 11/16/16 08:09 Schistocytes Not Reportable 11/16/16 08:09 Malaria parasites Not Reportable 11/16/16 08:09 Lamonte Bodies Not Reportable 11/16/16 08:09 Hem Pathologist Commnt No 11/16/16 08:09 PT 29.3 Sec. (12.2-14.9) H 11/16/16 08:09 INR 2.76 (0.87-1.13) H 11/16/16 08:09 APTT 45.1 Sec. (24.2-36.6) H 11/13/16 22:41 POC ABG pH 7.360 (7.35-7.45) 11/14/16 18:49 POC ABG pCO2 38.8 (35-45) 11/14/16 18:49 POC ABG pO2 78 (80-105) L 11/14/16 18:49 POC ABG HCO3 21.9 11/14/16 18:49 POC ABG Total CO2 23 11/14/16 18:49 POC ABG O2 Sat 95 11/14/16 18:49 POC ABG Base Excess -4 11/14/16 18:49 FiO2 28 % 11/14/16 18:49 Sodium 141 mmol/L (137-145) 11/16/16 08:09 Potassium 5.1 mmol/L (3.6-5.0) H 11/16/16 08:09 Chloride 105.6 mmol/L (98-107) 11/16/16 08:09 Carbon Dioxide 20 mmol/L (22-30) L 11/16/16 08:09 Anion Gap 21 mmol/L 11/16/16 08:09 BUN 23 mg/dL (9-20) H 11/16/16 08:09 Creatinine 1.3 mg/dL (0.8-1.5) 11/16/16 08:09 Estimated GFR > 60 ml/min 11/16/16 08:09 BUN/Creatinine Ratio 17.69 % 11/16/16 08:09 Glucose 117 mg/dL (75-100) H 11/16/16 08:09 Lactic Acid 1.70 mmol/L (0.7-2.0) 11/15/16 05:20 Calcium 8.4 mg/dL (8.4-10.2) 11/16/16 08:09 Phosphorus 2.60 mg/dL (2.5-4.5) 11/15/16 05:20 Magnesium 2.10 mg/dL (1.7-2.3) 11/15/16 05:20 Total Bilirubin 0.30 mg/dL (0.1-1.2) 11/16/16 08:09 Direct Bilirubin < 0.2 mg/dL (0-0.2) 11/16/16 08:09 AST 46 units/L (5-40) H 11/16/16 08:09 ALT 69 units/L (7-56) H 11/16/16 08:09 Alkaline Phosphatase 36 units/L (35-129) 11/16/16 08:09 Total Creatine Kinase 115 units/L (55-170) 11/14/16 12:00 CK-MB (CK-2) 2.3 ng/mL (0.0-4.0) 11/14/16 12:00 CK-MB (CK-2) Rel Index 2.0 (0-4) 11/14/16 12:00 Troponin T < 0.010 ng/mL (0.00-0.029) 11/14/16 12:00 C-Reactive Protein 0.10 mg/dL (0.00-1.30) 11/14/16 17:12 NT-Pro-B Natriuret Pep 858.5 pg/mL (0-900) 11/13/16 22:41 Total Protein 6.1 g/dL (6.3-8.2) L 11/16/16 08:09 Albumin 3.8 g/dL (3.9-5) L 11/16/16 08:09 Albumin/Globulin Ratio 1.7 % 11/16/16 08:09 TSH 1.720 mlU/mL (0.270-4.200) 11/13/16 22:41 Urine Color Yellow (Yellow) 11/14/16 11:45 Urine Turbidity Clear (Clear) 07/03/17 11:45 Urine pH 5.0 (5.0-7.0) 11/14/16 11:45 Ur Specific [place] 1.016 (1.003-1.030) 11/14/16 11:45 Urine Protein <15 mg/dl mg/dL (Negative) 11/14/16 11:45 Urine Glucose (UA) Neg mg/dL (Negative) 11/14/16 11:45 Urine Ketones Neg mg/dL (Negative) 11/14/16 11:45 Urine Blood Neg (Negative) 11/14/16 11:45 Urine Nitrite Neg (Negative) 11/14/16 11:45 Urine Bilirubin Neg (Negative) 11/14/16 11:45 Urine Urobilinogen < 2.0 mg/dL (<2.0) 11/14/16 11:45 Ur Leukocyte Esterase Mod (Negative) 11/14/16 11:45 Urine WBC (Auto) 21.0 /HPF (0.0-6.0) H 11/14/16 11:45 Urine RBC (Auto) 1.0 /HPF (0.0-6.0) 11/14/16 11:45 U Epithel Cells (Auto) 1.0 /HPF (0-13.0) 11/14/16 11:45 Urine Mucus 2+ /HPF 11/14/16 11:45 Urine Eosinophils None seen (None Seen) 11/14/16 11:45 Urine Creatinine 148.5 mg/dL (0.1-20.0) H 11/14/16 11:45 Urine Sodium 66 mEq/L 11/14/16 11:45 Hepatitis A IgM Ab Nonreactive (NonReactive) 11/14/16 08:46 Hep Bs Antigen Nonreactive (Negative) 11/14/16 08:46 Hep B Core IgM Ab Non-reactive (NonReactive) 11/14/16 08:46 Hepatitis C Antibody Nonreactive (NonReactive) 11/14/16 08:46
--- NOTE | 2016-11-16 12:29 | Progress Note ---
Assessment and Plan - Patient Problems (1) Acute exacerbation of chronic obstructive pulmonary disease (COPD) Current Visit: Yes Status: Acute (2) Bradycardia Current Visit: Yes Status: Acute (3) Hypotension Current Visit: Yes Status: Acute Qualifiers: Hypotension type: unspecified hypotension type Trimester: T Qualified Code(s): I95.9 - Hypotension, unspecified (4) History of CVA (cerebrovascular accident) Current Visit: Yes Status: Chronic (5) Non-ischemic cardiomyopathy Current Visit: No Status: Chronic (6) Discharge planning issues Current Visit: Yes Status: Acute Subjective Date of service: 11/16/16 Principal diagnosis: Symptomatic Bradycardia; Acute COPD exacerbation; YURI Interval history: Seen and examined at bedside; 24 hour events reviewed; nursing and respiratory care staff consulted; no adverse overnight events reported to me; Objective Vital Signs - 12hr 11/16/16 11/16/16 11/16/16 00:30 00:45 01:00 Temperature Pulse Rate 50 L 49 L 49 L Pulse Rate [ Bilateral Throughout] Respiratory 11 L 17 21 Rate Respiratory Rate [Bilateral Throughout] Blood Pressure 104/66 100/68 105/69 O2 Sat by Pulse 100 100 100 Oximetry 11/16/16 11/16/16 11/16/16 01:15 01:30 01:45 Temperature Pulse Rate 49 L 48 L 46 L Pulse Rate [ Bilateral Throughout] Respiratory 19 18 15 Rate Respiratory Rate [Bilateral Throughout] Blood Pressure 105/69 105/69 105/69 O2 Sat by Pulse 100 100 100 Oximetry 11/16/16 11/16/16 11/16/16 02:00 02:15 02:30 Temperature Pulse Rate 47 L 46 L 46 L Pulse Rate [ Bilateral Throughout] Respiratory 22 14 21 Rate Respiratory Rate [Bilateral Throughout] Blood Pressure 105/69 112/69 117/69 O2 Sat by Pulse 100 100 100 Oximetry 11/16/16 11/16/16 11/16/16 02:45 03:00 03:15 Temperature Pulse Rate 47 L 47 L 61 Pulse Rate [ Bilateral Throughout] Respiratory 15 17 16 Rate Respiratory Rate [Bilateral Throughout] Blood Pressure 119/72 126/68 117/68 O2 Sat by Pulse 100 100 100 Oximetry 11/16/16 11/16/16 11/16/16 03:30 03:45 04:00 Temperature 97.5 F L Pulse Rate 45 L 49 L 47 L Pulse Rate [ Bilateral Throughout] Respiratory 20 20 21 Rate Respiratory Rate [Bilateral Throughout] Blood Pressure 114/72 119/76 119/72 O2 Sat by Pulse 100 100 100 Oximetry 11/16/16 11/16/16 11/16/16 04:15 04:30 04:45 Temperature Pulse Rate 45 L 49 L 49 L Pulse Rate [ Bilateral Throughout] Respiratory 19 19 17 Rate Respiratory Rate [Bilateral Throughout] Blood Pressure 109/64 113/73 116/72 O2 Sat by Pulse 100 100 100 Oximetry 11/16/16 11/16/16 11/16/16 05:00 05:15 05:30 Temperature Pulse Rate 46 L 92 H 61 Pulse Rate [ Bilateral Throughout] Respiratory 17 18 20 Rate Respiratory Rate [Bilateral Throughout] Blood Pressure 115/65 125/68 115/65 O2 Sat by Pulse 100 100 100 Oximetry 11/16/16 11/16/16 11/16/16 05:45 06:00 06:15 Temperature Pulse Rate 47 L 46 L 50 L Pulse Rate [ Bilateral Throughout] Respiratory 11 L 19 13 Rate Respiratory Rate [Bilateral Throughout] Blood Pressure 96/57 92/57 95/58 O2 Sat by Pulse 99 100 100 Oximetry 11/16/16 11/16/16 11/16/16 06:30 06:46 07:00 Temperature Pulse Rate 51 L 47 L 88 Pulse Rate [ Bilateral Throughout] Respiratory 18 19 19 Rate Respiratory Rate [Bilateral Throughout] Blood Pressure 95/58 95/58 95/58 O2 Sat by Pulse 100 100 100 Oximetry 11/16/16 11/16/16 11/16/16 07:16 07:30 07:50 Temperature Pulse Rate 87 49 L 54 L Pulse Rate [ Bilateral Throughout] Respiratory 22 18 19 Rate Respiratory Rate [Bilateral Throughout] Blood Pressure 119/68 103/70 103/70 O2 Sat by Pulse 99 99 96 Oximetry 11/16/16 11/16/16 11/16/16 08:00 08:15 08:30 Temperature 97.7 F Pulse Rate 49 L 76 51 L Pulse Rate [ Bilateral Throughout] Respiratory 20 21 13 Rate Respiratory Rate [Bilateral Throughout] Blood Pressure 103/70 93/69 88/58 O2 Sat by Pulse 98 95 96 Oximetry 11/16/16 11/16/16 11/16/16 08:45 08:46 08:48 Temperature Pulse Rate 58 L Pulse Rate [ 54 L Bilateral Throughout] Respiratory 17 Rate Respiratory 18 Rate [Bilateral Throughout] Blood Pressure 92/57 O2 Sat by Pulse 100 97 Oximetry 11/16/16 11/16/16 11/16/16 09:00 09:10 09:15 Temperature Pulse Rate 53 L 55 L Pulse Rate [ 53 L Bilateral Throughout] Respiratory 24 19 Rate Respiratory 18 Rate [Bilateral Throughout] Blood Pressure 89/55 92/54 O2 Sat by Pulse 99 99 Oximetry 11/16/16 11/16/16 11/16/16 09:30 09:45 10:00 Temperature Pulse Rate 47 L 62 54 L Pulse Rate [ Bilateral Throughout] Respiratory 24 26 H 21 Rate Respiratory Rate [Bilateral Throughout] Blood Pressure 92/54 102/59 85/58 O2 Sat by Pulse 100 100 99 Oximetry 11/16/16 11/16/16 11/16/16 10:15 10:30 10:45 Temperature Pulse Rate 70 92 H 57 L Pulse Rate [ Bilateral Throughout] Respiratory 18 19 26 H Rate Respiratory Rate [Bilateral Throughout] Blood Pressure 90/61 90/61 93/53 O2 Sat by Pulse 98 98 99 Oximetry 11/16/16 11/16/16 11/16/16 11:00 11:15 11:30 Temperature Pulse Rate 58 L 96 H 90 Pulse Rate [ Bilateral Throughout] Respiratory 16 19 26 H Rate Respiratory Rate [Bilateral Throughout] Blood Pressure 88/57 90/60 90/60 O2 Sat by Pulse 97 98 Oximetry 11/16/16 11/16/16 11/16/16 11:46 12:00 12:15 Temperature Pulse Rate 76 55 L 69 Pulse Rate [ Bilateral Throughout] Respiratory 19 20 15 Rate Respiratory Rate [Bilateral Throughout] Blood Pressure 91/57 85/54 86/54 O2 Sat by Pulse 98 99 99 Oximetry Constitutional: no acute distress, alert Eyes: non-icteric ENT: oropharynx moist Neck: supple, no lymphadenopathy Effort: mildly labored Ascultation: Bilateral: clear, diminished breath sounds Cardiovascular: irregular rhythm Gastrointestinal: normoactive bowel sounds, soft, non-tender, non-distended Integumentary: normal Extremities: no cyanosis, no edema, pulses normal, no ischemia or petechiae Neurologic: normal mental status, non-focal exam, pupils equal and round, motor strength normal and Psychiatric: mood appropriate, affect normal CBC and BMP: 11/16/16 08:09 11/16/16 08:09 ABG, PT/INR, D-dimer: ABG POC ABG pH 7.360 (7.35-7.45) 11/14/16 18:49 POC ABG pCO2 38.8 (35-45) 11/14/16 18:49 POC ABG pO2 78 (80-105) L 11/14/16 18:49 POC ABG HCO3 21.9 11/14/16 18:49 POC ABG Total CO2 23 11/14/16 18:49 POC ABG O2 Sat 95 11/14/16 18:49 PT/INR, D-dimer PT 29.3 Sec. (12.2-14.9) H 11/16/16 08:09 INR 2.76 (0.87-1.13) H 11/16/16 08:09 Abnormal lab findings: Abnormal Labs 11/14/16 11/14/16 11/14/16 08:45 08:45 11:45 WBC RBC Hgb 11.5 L Hct 34.4 L RDW Plt Count 133 L Lymph % (Auto) [place] % (Auto) Lymph # [place] # Seg Neutrophils % Seg Neuts % (Manual) Lymphocytes % (Manual) Seg Neutrophils # Seg Neutrophils # Man Lymphocytes # (Manual) PT INR POC ABG pO2 Potassium Chloride Carbon Dioxide BUN 34 H Creatinine 1.6 H Glucose 171 H Lactic Acid AST ALT Total Protein Albumin Urine WBC (Auto) 21.0 H Urine Creatinine 11/14/16 11/14/16 11/14/16 11:45 17:12 18:49 WBC RBC Hgb Hct RDW Plt Count Lymph % (Auto) [place] % (Auto) Lymph # [place] # Seg Neutrophils % Seg Neuts % (Manual) Lymphocytes % (Manual) Seg Neutrophils # Seg Neutrophils # Man Lymphocytes # (Manual) PT INR POC ABG pO2 78 L Potassium Chloride Carbon Dioxide BUN Creatinine Glucose Lactic Acid 2.10 H* AST ALT Total Protein Albumin Urine WBC (Auto) Urine Creatinine 148.5 H 11/15/16 11/15/16 11/15/16 05:20 05:20 05:20 WBC 12.4 H RBC 3.46 L Hgb 10.4 L Hct 32.5 L RDW 15.3 H Plt Count 124 L Lymph % (Auto) 6.1 L [place] % (Auto) 7.8 H Lymph # 0.8 L [place] # 1.0 H Seg Neutrophils % 86.1 H Seg Neuts % (Manual) Lymphocytes % (Manual) Seg Neutrophils # 10.7 H Seg Neutrophils # Man Lymphocytes # (Manual) PT 33.4 H INR 3.25 H POC ABG pO2 Potassium Chloride 107.6 H Carbon Dioxide 19 L BUN 29 H Creatinine Glucose 114 H Lactic Acid AST ALT Total Protein Albumin Urine WBC (Auto) Urine Creatinine 11/16/16 11/16/16 11/16/16 08:09 08:09 08:09 WBC 16.9 H RBC 3.57 L Hgb 10.7 L Hct 33.4 L RDW 15.3 H Plt Count 139 L Lymph % (Auto) [place] % (Auto) Lymph # [place] # Seg Neutrophils % Seg Neuts % (Manual) 92.0 H Lymphocytes % (Manual) 5.0 L Seg Neutrophils # Seg Neutrophils # Man 15.5 H Lymphocytes # (Manual) 0.8 L PT 29.3 H INR 2.76 H POC ABG pO2 Potassium 5.1 H Chloride Carbon Dioxide 20 L BUN 23 H Creatinine Glucose 117 H Lactic Acid AST 46 H ALT 69 H Total Protein 6.1 L Albumin 3.8 L Urine WBC (Auto) Urine Creatinine
--- NOTE | 2016-11-16 14:13 | Progress Note ---
Assessment and Plan Hypotension weaned off pressors. Currently on midodrine Acute renal failure Dilated CMP EF 25-30% on echo this admission. patient previously declined ICD therapy. Prior CVA on warfarin as an outpatient INR 3.85 on presentation Sinus bradycardia with frequent PVCs and PACs pt remains asymptomatic normal TSH and Magnesium Recommendations: Resume medical therapy with BB and ACEi when BP allows. Subjective Date of service: 11/16/16 Principal diagnosis: Symptomatic Bradycardia; Acute COPD exacerbation; YURI Interval history: Patient has no cardiac complaints. Currently off pressor support. Sinus rhythm on telemetry. Objective Vital Signs Temp Pulse Pulse Resp Resp BP Pulse Ox 11/16/16 12:15 69 15 86/54 99 11/16/16 12:00 97.9 F 55 L 20 85/54 97 11/16/16 11:46 76 19 91/57 98 11/16/16 11:30 90 26 H 90/60 11/16/16 11:15 96 H 19 90/60 98 11/16/16 11:00 58 L 16 88/57 97 11/16/16 10:45 57 L 26 H 93/53 99 11/16/16 10:30 92 H 19 90/61 98 11/16/16 10:15 70 18 90/61 98 11/16/16 10:00 48 L 21 85/58 99 11/16/16 09:45 62 26 H 102/59 100 11/16/16 09:30 47 L 24 92/54 100 11/16/16 09:15 55 L 19 92/54 99 11/16/16 09:10 53 L 18 11/16/16 09:00 53 L 24 89/55 99 11/16/16 08:48 54 L 18 11/16/16 08:46 97 11/16/16 08:45 58 L 17 92/57 100 11/16/16 08:30 51 L 13 88/58 96 11/16/16 08:15 76 21 93/69 95 11/16/16 08:00 97.7 F 49 L 20 103/70 98 11/16/16 07:50 54 L 19 103/70 96 11/16/16 07:30 49 L 18 103/70 99 11/16/16 07:16 87 22 119/68 99 11/16/16 07:00 88 19 95/58 100 11/16/16 06:46 47 L 19 95/58 100 11/16/16 06:30 51 L 18 95/58 100 11/16/16 06:15 50 L 13 95/58 100 11/16/16 06:00 46 L 19 92/57 100 11/16/16 05:45 47 L 11 L 96/57 99 11/16/16 05:30 61 20 115/65 100 11/16/16 05:15 92 H 18 125/68 100 11/16/16 05:00 46 L 17 115/65 100 11/16/16 04:45 49 L 17 116/72 100 11/16/16 04:30 49 L 19 113/73 100 11/16/16 04:15 45 L 19 109/64 100 11/16/16 04:00 97.5 F L 47 L 21 119/72 100 11/16/16 03:45 49 L 20 119/76 100 11/16/16 03:30 45 L 20 114/72 100 11/16/16 03:15 61 16 117/68 100 11/16/16 03:00 47 L 17 126/68 100 11/16/16 02:45 47 L 15 119/72 100 11/16/16 02:30 46 L 21 117/69 100 11/16/16 02:15 46 L 14 112/69 100 11/16/16 02:00 47 L 22 105/69 100 11/16/16 01:45 46 L 15 105/69 100 11/16/16 01:30 48 L 18 105/69 100 11/16/16 01:15 49 L 19 105/69 100 11/16/16 01:00 49 L 21 105/69 100 11/16/16 00:45 49 L 17 100/68 100 11/16/16 00:30 50 L 11 L 104/66 100 11/16/16 00:15 54 L 18 106/68 100 11/16/16 00:00 98.2 F 48 L 15 103/64 100 11/15/16 23:52 49 L 23 103/64 100 11/15/16 23:45 45 L 18 103/64 100 11/15/16 23:30 60 24 94/59 100 11/15/16 23:16 52 L 22 94/59 100 11/15/16 23:00 51 L 18 94/59 100 11/15/16 22:46 54 L 24 92/53 100 11/15/16 22:30 57 L 21 95/57 100 11/15/16 22:16 58 L 22 97/63 100 11/15/16 22:00 67 20 92/55 100 11/15/16 21:45 52 L 21 92/55 100 11/15/16 21:30 54 L 23 103/63 100 11/15/16 21:15 52 L 18 103/63 100 11/15/16 21:00 58 L 24 85/54 100 11/15/16 20:45 60 21 89/60 100 11/15/16 20:30 84 24 101/63 100 11/15/16 20:15 56 L 25 H 101/63 100 11/15/16 20:05 100 11/15/16 20:00 54 L 24 94/52 100 11/15/16 19:48 98.9 F 11/15/16 19:45 55 L 26 H 94/52 100 11/15/16 19:40 55 L 25 H 11/15/16 19:30 55 L 19 97/65 100 11/15/16 19:25 53 L 25 H 11/15/16 19:15 79 22 97/65 100 11/15/16 19:00 55 L 18 100/57 100 11/15/16 18:45 52 L 17 100/57 100 11/15/16 18:30 52 L 18 96/63 100 11/15/16 18:15 52 L 19 96/63 100 11/15/16 18:00 86 21 102/53 100 11/15/16 17:46 49 L 24 102/53 100 11/15/16 17:30 53 L 21 97/63 100 11/15/16 17:15 55 L 12 102/63 100 11/15/16 17:00 48 L 12 105/69 72 L 11/15/16 16:46 69 22 100/64 11/15/16 16:30 56 L 15 89/59 11/15/16 16:15 72 12 89/59 100 11/15/16 16:00 98.1 F 54 L 20 90/49 100 11/15/16 15:46 56 L 18 90/49 100 11/15/16 15:30 61 25 H 90/53 100 11/15/16 15:15 56 L 17 86/53 100 11/15/16 15:00 50 L 21 81/49 100 11/15/16 14:45 59 L 27 H 80/50 100 11/15/16 14:30 79 24 85/56 91 11/15/16 14:15 62 15 85/56 100 - Physical Examination General: No Apparent Distress HEENT: Positive: PERRL Neck: Positive: trachea midline Cardiac: Positive: Reg Rate and Rhythm Neuro: Positive: Grossly Intact Abdomen: Positive: Soft, Active Bowel Sounds Extremities: Present: normal - Labs and Meds Cardiac Enzymes 11/16/16 Range/Units 08:09 AST 46 H (5-40) units/L Coagulation 11/16/16 Range/Units 08:09 PT 29.3 H (12.2-14.9) Sec. INR 2.76 H (0.87-1.13) CBC 11/16/16 Range/Units 08:09 WBC 16.9 H (4.5-11.0) K/mm3 RBC 3.57 L (3.65-5.03) M/mm3 Hgb 10.7 L (11.8-15.2) gm/dl Hct 33.4 L (35.5-45.6) % Plt Count 139 L (140-440) K/mm3 Comprehensive Metabolic Panel 11/16/16 Range/Units 08:09 Sodium 141 (137-145) mmol/L Potassium 5.1 H (3.6-5.0) mmol/L Chloride 105.6 (98-107) mmol/L Carbon Dioxide 20 L (22-30) mmol/L BUN 23 H (9-20) mg/dL Creatinine 1.3 (0.8-1.5) mg/dL Glucose 117 H (75-100) mg/dL Calcium 8.4 (8.4-10.2) mg/dL Direct Bilirubin < 0.2 (0-0.2) mg/dL AST 46 H (5-40) units/L ALT 69 H (7-56) units/L Alkaline Phosphatase 36 (35-129) units/L Total Protein 6.1 L (6.3-8.2) g/dL Albumin 3.8 L (3.9-5) g/dL
--- NOTE | 2016-11-16 16:29 | Cat Scan Report ---
CT abdomen and pelvis without contrast: Hypotension, pelvic mass. Transverse images are obtained in the left chest to the ischium with coronal and sagittal 2-D reformatted images. The visualized lung bases are unremarkable except for a calcified nodule at the right lung base. There are several hypodensity left iliac diameter is 17 mm and the right approximately 12 mm. mm. in the liver consistent with small cysts. The abdominal organs are unremarkable. The kidneys are normal in size and contour. There is a 2.1 cm circumscribed hypodensity in the lower right kidney. There is a poorly identified area of decreased attenuation in the superior left kidney. The diameter of the suprarenal abdominal aorta is 4.4 cm. The aorta then tapers toward the bifurcation. At or just above the bifurcation the diameter is 2.7 cm. The common iliac arteries measure approximately 18 mm in diameter each. The external right iliac artery courses along the posterior superior margin of a right pelvic mass. The mass is medial to the ileo-psoas muscle and compresses the right margin of the urinary bladder. It measures approximately 7.7 x 8.4 cm in size. Its attenuation is between water and muscle. A right femoral catheter is present coursing along the anterior surface of the mass to the mid pelvis. Severe degenerative spondylosis and discogenic disease is present from L3-S1. No destructive lesions noted. Impressions: 1. Hypodense renal lesions seen on recent ultrasound to represent cysts. 2. Right pelvic mass. Origin unclear. A contrasted CT or MR scan may be helpful. The
[2016-11-16 20:49] LABS: Myeloperoxidase Antibody <1.0 AI (<1.0)
[2016-11-16] MEDS: LOVENOX SUB-Q SCH (22:00)
[2016-11-16] MEDS: ZOCOR PO SCH (23:21)
[2016-11-17 04:04] LABS: Albumin 3.7 g/dL (3.8-4.8); Gamma Globulin 0.6 g/dL (0.8-1.7)
[2016-11-17] MEDS: PROAMATINE PO SCH ×3 (06:00→21:43)
[2016-11-17 06:42] LABS: Basophils % (Auto) 0.3 % (0.0-1.8); Hematocrit 32.9 % (35.5-45.6); Hemoglobin 10.7 gm/dl (11.8-15.2); Mean Corpuscular HGB Conc 32 % (32-34); Mean Corpuscular Hemoglobin 30 pg (28-32); Mean Corpuscular Volume 92 fl (84-94); Platelet Count 141 K/mm3 (140-440); Red Blood Count 3.56 M/mm3 (3.65-5.03); Red Cell Distribution Width 15.2 % (13.2-15.2); White Blood Count 17.1 K/mm3 (4.5-11.0)
[2016-11-17 06:53] LABS: INR 2.11 (0.87-1.13)
[2016-11-17 07:06] LABS: Anion Gap 17 mmol/L; Blood Urea Nitrogen 20 mg/dL (9-20); Calcium 8.3 mg/dL (8.4-10.2); Carbon Dioxide 20 mmol/L (22-30); Glucose 106 mg/dL (75-100); Potassium 4.4 mmol/L (3.6-5.0); Sodium 138 mmol/L (137-145)
[2016-11-17] MEDS: DUONEB *Not for PRN Use IH SCH ×3 (08:24→22:24)
[2016-11-17] MEDS: BROVANA NEBU IH SCH ×2 (08:25→22:24)
--- NOTE | 2016-11-17 10:30 | Progress Note ---
Subjective Principal diagnosis: Symptomatic Bradycardia; Acute COPD exacerbation; YURI Interval history: Patient was seen today for follow-up on multiple renal related issues Events noted No acute distress Vitals labs intake output medications reviewed Social history: Reviewed Family history: Reviewed Physical examination Vitals: Reviewed HEENT: Oral mucosa moist Neck: Supple no JVD Chest: Clear to auscultation no crackles Heart: Regular rate and rhythm S1 and S2 heard Abdomen: Soft nontender bowel sounds present Extremity: Mild edema dry skin Dermatology; dry skin Psychiatry: No evidence of agitation or aggression Assessment and plan; Acute kidney injury likely resulting from prerenal state with hypoperfusion due to bradycardia and hypotension Creatinine has completely normalize Patient also does have underlying congestive heart failure which makes him prone to chronic renal injury ischemic nephropathy Hypotension and bradycardia clinically doing better/per cardiology he has declined ICD therapy Noted to have acute acceleration of COPD Patient has been noted to have a ? bladder mass he will need to be seen by urologist and followed up Congestive heart failure; most comply with diet lifestyle Multiple risk factors for progression of renal failure over time Will sign off the case please call if needed Objective - Vital Signs Vital signs: Vital Signs - 12hr 11/16/16 11/16/16 11/16/16 22:35 22:41 22:45 Temperature Pulse Rate 75 93 H 79 Respiratory 23 11 L 19 Rate Blood Pressure 103/71 103/71 111/71 O2 Sat by Pulse 98 99 100 Oximetry 11/16/16 11/16/16 11/16/16 22:51 22:55 23:00 Temperature Pulse Rate 96 H 74 82 Respiratory 25 H 19 21 Rate Blood Pressure 111/71 111/71 100/70 O2 Sat by Pulse 100 99 99 Oximetry 11/16/16 11/16/16 11/16/16 23:05 23:11 23:15 Temperature Pulse Rate 78 78 74 Respiratory 22 24 13 Rate Blood Pressure 100/70 100/70 107/73 O2 Sat by Pulse 100 99 100 Oximetry 11/16/16 11/16/16 11/16/16 23:21 23:25 23:30 Temperature Pulse Rate 85 74 79 Respiratory 21 21 25 H Rate Blood Pressure 107/73 107/73 114/74 O2 Sat by Pulse 99 98 100 Oximetry 11/16/16 11/16/16 11/16/16 23:35 23:41 23:45 Temperature Pulse Rate 74 73 76 Respiratory 25 H 20 24 Rate Blood Pressure 114/74 114/74 107/74 O2 Sat by Pulse 98 99 99 Oximetry 11/17/16 11/17/16 11/17/16 00:00 01:21 01:25 Temperature 98.1 F Pulse Rate 80 68 Respiratory 17 18 Rate Blood Pressure 121/82 121/82 O2 Sat by Pulse 100 98 99 Oximetry 11/17/16 11/17/16 11/17/16 01:30 01:35 01:41 Temperature Pulse Rate 73 70 76 Respiratory 19 18 18 Rate Blood Pressure 126/81 126/81 126/81 O2 Sat by Pulse 99 99 99 Oximetry 11/17/16 11/17/16 11/17/16 01:45 01:51 01:55 Temperature Pulse Rate 82 77 75 Respiratory 19 21 18 Rate Blood Pressure 126/81 111/75 111/75 O2 Sat by Pulse 100 99 100 Oximetry 11/17/16 11/17/16 11/17/16 02:00 02:05 02:11 Temperature Pulse Rate 68 76 81 Respiratory 21 22 20 Rate Blood Pressure 104/78 104/78 104/78 O2 Sat by Pulse 99 99 99 Oximetry 11/17/16 11/17/16 11/17/16 02:15 02:21 02:25 Temperature Pulse Rate 87 77 80 Respiratory 20 18 20 Rate Blood Pressure 120/75 120/75 120/75 O2 Sat by Pulse 99 99 98 Oximetry 11/17/16 11/17/16 11/17/16 02:30 02:35 02:41 Temperature Pulse Rate 80 69 69 Respiratory 24 19 18 Rate Blood Pressure 122/80 122/80 122/80 O2 Sat by Pulse 98 98 98 Oximetry 11/17/16 11/17/16 11/17/16 02:45 02:51 02:55 Temperature Pulse Rate 82 80 74 Respiratory 17 18 21 Rate Blood Pressure 118/89 122/80 122/80 O2 Sat by Pulse 98 98 98 Oximetry 11/17/16 11/17/16 11/17/16 03:00 03:05 03:11 Temperature Pulse Rate 72 74 82 Respiratory 16 23 20 Rate Blood Pressure 102/72 102/72 102/72 O2 Sat by Pulse 98 99 99 Oximetry 11/17/16 11/17/16 11/17/16 03:15 03:21 03:25 Temperature Pulse Rate 77 76 73 Respiratory 18 17 24 Rate Blood Pressure 101/74 102/72 102/72 O2 Sat by Pulse 99 99 99 Oximetry 11/17/16 11/17/16 11/17/16 03:30 03:35 03:41 Temperature Pulse Rate 76 71 67 Respiratory 18 18 17 Rate Blood Pressure 99/77 99/77 99/77 O2 Sat by Pulse 99 99 98 Oximetry 11/17/16 11/17/16 11/17/16 03:45 03:51 03:55 Temperature Pulse Rate 68 69 73 Respiratory 14 18 20 Rate Blood Pressure 110/78 101/74 101/74 O2 Sat by Pulse 99 98 98 Oximetry 11/17/16 11/17/16 11/17/16 04:00 04:01 04:05 Temperature 98.6 F Pulse Rate 85 83 Respiratory 18 22 Rate Blood Pressure 109/38 109/38 O2 Sat by Pulse 98 98 Oximetry 11/17/16 11/17/16 11/17/16 04:11 04:15 04:21 Temperature Pulse Rate 76 63 80 Respiratory 20 24 24 Rate Blood Pressure 109/38 120/78 120/78 O2 Sat by Pulse 98 99 98 Oximetry 11/17/16 11/17/16 11/17/16 04:25 04:30 04:35 Temperature Pulse Rate 68 66 92 H Respiratory 22 25 H 18 Rate Blood Pressure 120/78 111/78 111/78 O2 Sat by Pulse 98 99 99 Oximetry 11/17/16 11/17/16 11/17/16 04:41 04:45 04:51 Temperature Pulse Rate 72 70 69 Respiratory 25 H 21 19 Rate Blood Pressure 111/78 112/76 112/76 O2 Sat by Pulse 98 99 99 Oximetry 11/17/16 11/17/16 11/17/16 04:55 05:00 05:05 Temperature Pulse Rate 72 82 77 Respiratory 18 19 18 Rate Blood Pressure 112/76 107/74 107/74 O2 Sat by Pulse 99 100 99 Oximetry 11/17/16 11/17/16 11/17/16 05:11 05:15 05:21 Temperature Pulse Rate 81 70 89 Respiratory 20 15 19 Rate Blood Pressure 107/74 112/79 112/79 O2 Sat by Pulse 99 99 96 Oximetry 11/17/16 11/17/16 11/17/16 05:25 05:30 05:35 Temperature Pulse Rate 84 69 70 Respiratory 13 17 19 Rate Blood Pressure 112/79 115/76 115/76 O2 Sat by Pulse 97 98 98 Oximetry 11/17/16 11/17/16 11/17/16 05:41 05:45 05:51 Temperature Pulse Rate 81 70 83 Respiratory 24 23 16 Rate Blood Pressure 115/76 107/76 107/76 O2 Sat by Pulse 98 98 99 Oximetry 11/17/16 11/17/16 11/17/16 05:55 06:00 06:05 Temperature Pulse Rate 81 85 77 Respiratory 21 20 20 Rate Blood Pressure 107/76 103/72 103/72 O2 Sat by Pulse 100 98 97 Oximetry 11/17/16 11/17/16 11/17/16 06:11 06:15 06:21 Temperature Pulse Rate 69 73 82 Respiratory 20 20 27 H Rate Blood Pressure 103/72 113/78 113/78 O2 Sat by Pulse 98 98 98 Oximetry 11/17/16 11/17/16 11/17/16 06:25 06:30 06:35 Temperature Pulse Rate 86 71 70 Respiratory 22 23 23 Rate Blood Pressure 113/78 106/74 106/74 O2 Sat by Pulse 97 98 98 Oximetry 11/17/16 11/17/16 11/17/16 06:41 06:45 06:51 Temperature Pulse Rate 82 71 78 Respiratory 22 24 21 Rate Blood Pressure 106/74 105/71 105/71 O2 Sat by Pulse 98 98 99 Oximetry 11/17/16 11/17/16 11/17/16 06:55 07:00 07:05 Temperature Pulse Rate 70 83 93 H Respiratory 19 17 22 Rate Blood Pressure 105/71 95/73 95/73 O2 Sat by Pulse 98 99 97 Oximetry 11/17/16 11/17/16 11/17/16 07:11 07:15 07:21 Temperature Pulse Rate 73 72 72 Respiratory 13 20 29 H Rate Blood Pressure 95/73 101/72 101/72 O2 Sat by Pulse 98 96 98 Oximetry 11/17/16 11/17/16 11/17/16 07:25 07:30 08:00 Temperature 98.1 F Pulse Rate 81 80 68 Respiratory 19 29 H 21 Rate Blood Pressure 101/72 95/72 101/61 O2 Sat by Pulse 98 98 100 Oximetry 11/17/16 08:26 Temperature Pulse Rate Respiratory Rate Blood Pressure O2 Sat by Pulse 97 Oximetry - Lab 11/17/16 06:00 11/17/16 06:00 Most recent lab results Calcium 8.3 mg/dL (8.4-10.2) L 11/17/16 06:00 Phosphorus 2.60 mg/dL (2.5-4.5) 11/15/16 05:20 Magnesium 2.10 mg/dL (1.7-2.3) 11/15/16 05:20 Urine Creatinine 148.5 mg/dL (0.1-20.0) H 11/14/16 11:45 Urine Sodium 66 mEq/L 11/14/16 11:45
--- NOTE | 2016-11-17 11:13 | Progress Note ---
Assessment and Plan Assessment and plan: 71-year-old male with a past medical history of CHF, EF 25%, who presented with 3 days or shortness of breath. Cardiogenic shock continue oral Midodrin , attempted to wean him off Levophed drip yestereday, but became hypotensive, therefore Levophed was restarted, attempt to wean again today. plan discussed with cardiology Acute on chronic systolic CHF Cardiology input appreciated, patient has refused ICD, Plan was to put him back on beta tito and TYLOR inhibitor however his blood pressure being low and he is unable to tolerate it Acute on chronic kidney injury/vasomotor nephropathy Nephrology input appreciated, renal function likely improve due to hydration and improved perfusion due to pressors. Now resolved, avoid nephrotoxins Bradycardia Avoid beta blockers and AV imtiaz blockers COPD exacerbation Pulmonology input appreciated, continue steroids and nebulizers and antibiotics Pyuria Highly doubt UTI as pyuria is mild, patient is already on antibiotics, fup urine cx- patient had already received abx by the time cx was taken Bladder mass? Questionable bladder mass seen on ultrasound non contrast CT still shows questionable mass avoiding IV contrast given YURI, will obtain MR pelvis Obtain Urology consult if mass is confirmed History of stroke with right hemiparesis Continue aspirin and Plavix DVT prophylaxis Lovenox Plan discussed with patient and consultants The high probability of a clinically significant, sudden or life threatening deterioration of the [cardiovascular and pulmonary] system(s) required my full and direct attention, intervention and personal management. The aggregate critical care time was [32] minutes. This time is in addition to time spent performing reported procedures but includes the following: [] Data Review and interpretation [] Patient assessment and monitoring of vital signs [] Documentation [] Medication orders and management History Interval history: dyspnea has now resolved, he has some generalized weakness. But admits to feeling better today Hospitalist Physical - Physical exam Narrative exam: General: no distress, cachectic HEENT: MMM, EOMI cardiac: S1-S2 heard lungs: CTA bilaterally abdomen: soft, nontender, nondistended bowel sounds positive extremities: no edema clubbing or cyanosis Skin: no rash or lesion Neuro: Right hemiparesis Psych: appropriate behavior and mood, cognition intact - Constitutional Vitals: Temp Pulse Resp BP Pulse Ox 98.1 F 68 21 101/61 97 11/17/16 08:00 11/17/16 08:00 11/17/16 08:00 11/17/16 08:00 11/17/16 08:26 General appearance: Present: no acute distress Results - Labs CBC & Chem 7: 11/18/16 05:54 11/18/16 05:54 Labs: Laboratory Last Values WBC 17.1 K/mm3 (4.5-11.0) H 11/17/16 06:00 RBC 3.56 M/mm3 (3.65-5.03) L 11/17/16 06:00 Hgb 10.7 gm/dl (11.8-15.2) L 11/17/16 06:00 Hct 32.9 % (35.5-45.6) L 11/17/16 06:00 MCV 92 fl (84-94) 11/17/16 06:00 MCH 30 pg (28-32) 11/17/16 06:00 MCHC 32 % (32-34) 11/17/16 06:00 RDW 15.2 % (13.2-15.2) 11/17/16 06:00 Plt Count 141 K/mm3 (140-440) 11/17/16 06:00 Lymph % (Auto) 2.8 % (13.4-35.0) L 11/17/16 06:00 [place] % (Auto) 9.6 % (0.0-7.3) H 11/17/16 06:00 Eos % (Auto) 0.0 % (0.0-4.3) 11/17/16 06:00 Baso % (Auto) 0.3 % (0.0-1.8) 11/17/16 06:00 Lymph # 0.5 K/mm3 (1.2-5.4) L 11/17/16 06:00 [place] # 1.6 K/mm3 (0.0-0.8) H 11/17/16 06:00 Eos # 0.0 K/mm3 (0.0-0.4) 11/17/16 06:00 Baso # 0.0 K/mm3 (0.0-0.1) 11/17/16 06:00 Add Manual Diff Complete 11/16/16 08:09 Total Counted 100 11/16/16 08:09 Seg Neutrophils % 87.3 % (40.0-70.0) H 11/17/16 06:00 Seg Neuts % (Manual) 92.0 % (40.0-70.0) H 11/16/16 08:09 Band Neutrophils % 2.0 % 11/16/16 08:09 Lymphocytes % (Manual) 5.0 % (13.4-35.0) L 11/16/16 08:09 Reactive Lymphs % (Man) 0 % 11/16/16 08:09 Monocytes % (Manual) 1.0 % (0.0-7.3) 11/16/16 08:09 Eosinophils % (Manual) 0 % (0.0-4.3) 11/16/16 08:09 Basophils % (Manual) 0 % (0.0-1.8) 11/16/16 08:09 Metamyelocytes % 0 % 11/16/16 08:09 Myelocytes % 0 % 11/16/16 08:09 Promyelocytes % 0 % 11/16/16 08:09 Blast Cells % 0 % 11/16/16 08:09 Nucleated RBC % Not Reportable 11/16/16 08:09 Seg Neutrophils # 15.0 K/mm3 (1.8-7.7) H 11/17/16 06:00 Seg Neutrophils # Man 15.5 K/mm3 (1.8-7.7) H 11/16/16 08:09 Band Neutrophils # 0.3 K/mm3 11/16/16 08:09 Lymphocytes # (Manual) 0.8 K/mm3 (1.2-5.4) L 11/16/16 08:09 Abs React Lymphs (Man) 0.0 K/mm3 11/16/16 08:09 Monocytes # (Manual) 0.2 K/mm3 (0.0-0.8) 11/16/16 08:09 Eosinophils # (Manual) 0.0 K/mm3 (0.0-0.4) 11/16/16 08:09 Basophils # (Manual) 0.0 K/mm3 (0.0-0.1) 11/16/16 08:09 Metamyelocytes # 0.0 K/mm3 11/16/16 08:09 Myelocytes # 0.0 K/mm3 11/16/16 08:09 Promyelocytes # 0.0 K/mm3 11/16/16 08:09 Blast Cells # 0.0 K/mm3 11/16/16 08:09 WBC Morphology Not Reportable 11/16/16 08:09 Hypersegmented Neuts Not Reportable 11/16/16 08:09 Hyposegmented Neuts Not Reportable 11/16/16 08:09 Hypogranular Neuts Not Reportable 11/16/16 08:09 Smudge Cells Not Reportable 11/16/16 08:09 Toxic Granulation Not Reportable 11/16/16 08:09 Toxic Vacuolation Not Reportable 11/16/16 08:09 Dohle Bodies Not Reportable 11/16/16 08:09 Pelger-Huet Anomaly Not Reportable 11/16/16 08:09 Rosetta Rods Not Reportable 11/16/16 08:09 Platelet Estimate Appears normal 11/16/16 08:09 Clumped Platelets Not Reportable 11/16/16 08:09 Plt Clumps, EDTA Not Reportable 11/16/16 08:09 Large Platelets Not Reportable 11/16/16 08:09 Giant Platelets Not Reportable 11/16/16 08:09 Platelet Satelliting Not Reportable 11/16/16 08:09 Plt Morphology Comment Not Reportable 11/16/16 08:09 RBC Morphology Not Reportable 11/16/16 08:09 Dimorphic RBCs Not Reportable 11/16/16 08:09 Polychromasia Not Reportable 11/16/16 08:09 Hypochromasia Not Reportable 11/16/16 08:09 Poikilocytosis Not Reportable 11/16/16 08:09 Anisocytosis 1+ 11/16/16 08:09 Microcytosis Not Reportable 11/16/16 08:09 Macrocytosis Not Reportable 11/16/16 08:09 Spherocytes Not Reportable 11/16/16 08:09 Pappenheimer Bodies Not Reportable 11/16/16 08:09 Sickle Cells Not Reportable 11/16/16 08:09 Target Cells Rare 11/16/16 08:09 Tear Drop Cells Not Reportable 11/16/16 08:09 Ovalocytes 1+ 11/16/16 08:09 Helmet Cells Rare 11/16/16 08:09 [place] Bodies Not Reportable 11/16/16 08:09 [place] Rings Not Reportable 11/16/16 08:09 [place] Cells 1+ 11/16/16 08:09 Bite Cells Not Reportable 11/16/16 08:09 Crenated Cell Not Reportable 11/16/16 08:09 Elliptocytes Few 11/16/16 08:09 Acanthocytes (Spur) Rare 11/16/16 08:09 Rouleaux Not Reportable 11/16/16 08:09 Hemoglobin C Crystals Not Reportable 11/16/16 08:09 Schistocytes Not Reportable 11/16/16 08:09 Malaria parasites Not Reportable 11/16/16 08:09 [place] Bodies Not Reportable 11/16/16 08:09 Hem Pathologist Commnt No 11/16/16 08:09 PT 23.7 Sec. (12.2-14.9) H 11/17/16 06:00 INR 2.11 (0.87-1.13) H 11/17/16 06:00 APTT 45.1 Sec. (24.2-36.6) H 11/13/16 22:41 POC ABG pH 7.360 (7.35-7.45) 11/14/16 18:49 POC ABG pCO2 38.8 (35-45) 11/14/16 18:49 POC ABG pO2 78 (80-105) L 11/14/16 18:49 POC ABG HCO3 21.9 11/14/16 18:49 POC ABG Total CO2 23 11/14/16 18:49 POC ABG O2 Sat 95 11/14/16 18:49 POC ABG Base Excess -4 11/14/16 18:49 FiO2 28 % 11/14/16 18:49 Sodium 138 mmol/L (137-145) 11/17/16 06:00 Potassium 4.4 mmol/L (3.6-5.0) 11/17/16 06:00 Chloride 105.0 mmol/L (98-107) 11/17/16 06:00 Carbon Dioxide 20 mmol/L (22-30) L 11/17/16 06:00 Anion Gap 17 mmol/L 11/17/16 06:00 BUN 20 mg/dL (9-20) 11/17/16 06:00 Creatinine 1.0 mg/dL (0.8-1.5) 11/17/16 06:00 Estimated GFR > 60 ml/min 11/17/16 06:00 BUN/Creatinine Ratio 20.00 % 11/17/16 06:00 Glucose 106 mg/dL (75-100) H 11/17/16 06:00 Lactic Acid 1.70 mmol/L (0.7-2.0) 11/15/16 05:20 Calcium 8.3 mg/dL (8.4-10.2) L 11/17/16 06:00 Phosphorus 2.60 mg/dL (2.5-4.5) 11/15/16 05:20 Magnesium 2.10 mg/dL (1.7-2.3) 11/15/16 05:20 Total Bilirubin 0.30 mg/dL (0.1-1.2) 11/16/16 08:09 Direct Bilirubin < 0.2 mg/dL (0-0.2) 11/16/16 08:09 AST 46 units/L (5-40) H 11/16/16 08:09 ALT 69 units/L (7-56) H 11/16/16 08:09 Alkaline Phosphatase 36 units/L (35-129) 11/16/16 08:09 Total Creatine Kinase 115 units/L (55-170) 11/14/16 12:00 CK-MB (CK-2) 2.3 ng/mL (0.0-4.0) 11/14/16 12:00 CK-MB (CK-2) Rel Index 2.0 (0-4) 11/14/16 12:00 Troponin T < 0.010 ng/mL (0.00-0.029) 11/14/16 12:00 C-Reactive Protein 0.10 mg/dL (0.00-1.30) 11/14/16 17:12 NT-Pro-B Natriuret Pep 858.5 pg/mL (0-900) 11/13/16 22:41 Serum Total Protein 6.0 g/dL (6.1-8.1) L 11/14/16 08:46 Total Protein 6.1 g/dL (6.3-8.2) L 11/16/16 08:09 Albumin 3.8 g/dL (3.9-5) L 11/16/16 08:09 Albumin/Globulin Ratio 1.7 % 11/16/16 08:09 Yripf-6-Qgduznpht 0.3 g/dL (0.2-0.3) 11/14/16 08:46 Pufnk-3-Muplahacc 0.7 g/dL (0.5-0.9) 11/14/16 08:46 Beta Globulins 0.4 g/dL (0.2-0.5) 11/14/16 08:46 Gamma Globulins 0.6 g/dL (0.8-1.7) L 11/14/16 08:46 Abnorm Protein Band 1 see below 11/14/16 08:46 PEP Interpretation see below H 11/14/16 08:46 TSH 1.720 mlU/mL (0.270-4.200) 11/13/16 22:41 Urine Color Yellow (Yellow) 11/14/16 11:45 Urine Turbidity Clear (Clear) 11/14/16 11:45 Urine pH 5.0 (5.0-7.0) 11/14/16 11:45 Ur Specific [place] 1.016 (1.003-1.030) 11/14/16 11:45 Urine Protein <15 mg/dl mg/dL (Negative) 11/14/16 11:45 Urine Glucose (UA) Neg mg/dL (Negative) 11/14/16 11:45 Urine Ketones Neg mg/dL (Negative) 11/14/16 11:45 Urine Blood Neg (Negative) 11/14/16 11:45 Urine Nitrite Neg (Negative) 11/14/16 11:45 Urine Bilirubin Neg (Negative) 11/14/16 11:45 Urine Urobilinogen < 2.0 mg/dL (<2.0) 11/14/16 11:45 Ur Leukocyte Esterase Mod (Negative) 11/14/16 11:45 Urine WBC (Auto) 21.0 /HPF (0.0-6.0) H 11/14/16 11:45 Urine RBC (Auto) 1.0 /HPF (0.0-6.0) 11/14/16 11:45 U Epithel Cells (Auto) 1.0 /HPF (0-13.0) 11/14/16 11:45 Urine Mucus 2+ /HPF 11/14/16 11:45 Urine Eosinophils None seen (None Seen) 11/14/16 11:45 Urine Creatinine 148.5 mg/dL (0.1-20.0) H 11/14/16 11:45 Urine Sodium 66 mEq/L 11/14/16 11:45 Proteinase 3 (PR3) Ab <1.0 AI (<1.0) 11/14/16 08:46 Myeloperoxidase Ab <1.0 AI (<1.0) 11/14/16 08:46 Complement C3 113 mg/dL (90-180) 11/14/16 08:46 Complement C4 27 mg/dL (16-47) 11/14/16 08:46 Hepatitis A IgM Ab Nonreactive (NonReactive) 11/14/16 08:46 Hep Bs Antigen Nonreactive (Negative) 11/14/16 08:46 Hep B Core IgM Ab Non-reactive (NonReactive) 11/14/16 08:46 Hepatitis C Antibody Nonreactive (NonReactive) 11/14/16 08:46
[2016-11-17] MEDS: PEPCID PO SCH ×2 (12:00→21:09)
--- NOTE | 2016-11-17 13:11 | Progress Note ---
Assessment and Plan - Patient Problems (1) Acute exacerbation of chronic obstructive pulmonary disease (COPD) Current Visit: Yes Status: Acute (2) Bradycardia Current Visit: Yes Status: Acute (3) Hypotension Current Visit: Yes Status: Acute Qualifiers: Hypotension type: unspecified hypotension type Trimester: T Qualified Code(s): I95.9 - Hypotension, unspecified (4) History of CVA (cerebrovascular accident) Current Visit: Yes Status: Chronic (5) Non-ischemic cardiomyopathy Current Visit: No Status: Chronic (6) Discharge planning issues Current Visit: Yes Status: Acute Subjective Date of service: 11/17/16 Principal diagnosis: Symptomatic Bradycardia; Acute COPD exacerbation; YURI Interval history: Seen and examined at bedside; 24 hour events reviewed; nursing and respiratory care staff consulted; no adverse overnight events reported to me; Objective Vital Signs - 12hr 11/17/16 11/17/16 11/17/16 01:21 01:25 01:30 Temperature Pulse Rate 80 68 73 Respiratory 17 18 19 Rate Blood Pressure 121/82 121/82 126/81 O2 Sat by Pulse 98 99 99 Oximetry 11/17/16 11/17/16 11/17/16 01:35 01:41 01:45 Temperature Pulse Rate 70 76 82 Respiratory 18 18 19 Rate Blood Pressure 126/81 126/81 126/81 O2 Sat by Pulse 99 99 100 Oximetry 11/17/16 11/17/16 11/17/16 01:51 01:55 02:00 Temperature Pulse Rate 77 75 68 Respiratory 21 18 21 Rate Blood Pressure 111/75 111/75 104/78 O2 Sat by Pulse 99 100 99 Oximetry 11/17/16 11/17/16 11/17/16 02:05 02:11 02:15 Temperature Pulse Rate 76 81 87 Respiratory 22 20 20 Rate Blood Pressure 104/78 104/78 120/75 O2 Sat by Pulse 99 99 99 Oximetry 11/17/16 11/17/16 11/17/16 02:21 02:25 02:30 Temperature Pulse Rate 77 80 80 Respiratory 18 20 24 Rate Blood Pressure 120/75 120/75 122/80 O2 Sat by Pulse 99 98 98 Oximetry 11/17/16 11/17/16 11/17/16 02:35 02:41 02:45 Temperature Pulse Rate 69 69 82 Respiratory 19 18 17 Rate Blood Pressure 122/80 122/80 118/89 O2 Sat by Pulse 98 98 98 Oximetry 11/17/16 11/17/16 11/17/16 02:51 02:55 03:00 Temperature Pulse Rate 80 74 72 Respiratory 18 21 16 Rate Blood Pressure 122/80 122/80 102/72 O2 Sat by Pulse 98 98 98 Oximetry 11/17/16 11/17/16 11/17/16 03:05 03:11 03:15 Temperature Pulse Rate 74 82 77 Respiratory 23 20 18 Rate Blood Pressure 102/72 102/72 101/74 O2 Sat by Pulse 99 99 99 Oximetry 11/17/16 11/17/16 11/17/16 03:21 03:25 03:30 Temperature Pulse Rate 76 73 76 Respiratory 17 24 18 Rate Blood Pressure 102/72 102/72 99/77 O2 Sat by Pulse 99 99 99 Oximetry 11/17/16 11/17/16 11/17/16 03:35 03:41 03:45 Temperature Pulse Rate 71 67 68 Respiratory 18 17 14 Rate Blood Pressure 99/77 99/77 110/78 O2 Sat by Pulse 99 98 99 Oximetry 11/17/16 11/17/16 11/17/16 03:51 03:55 04:00 Temperature 98.6 F Pulse Rate 69 73 Respiratory 18 20 Rate Blood Pressure 101/74 101/74 O2 Sat by Pulse 98 98 Oximetry 11/17/16 11/17/16 11/17/16 04:01 04:05 04:11 Temperature Pulse Rate 85 83 76 Respiratory 18 22 20 Rate Blood Pressure 109/38 109/38 109/38 O2 Sat by Pulse 98 98 98 Oximetry 11/17/16 11/17/16 11/17/16 04:15 04:21 04:25 Temperature Pulse Rate 63 80 68 Respiratory 24 24 22 Rate Blood Pressure 120/78 120/78 120/78 O2 Sat by Pulse 99 98 98 Oximetry 11/17/16 11/17/16 11/17/16 04:30 04:35 04:41 Temperature Pulse Rate 66 92 H 72 Respiratory 25 H 18 25 H Rate Blood Pressure 111/78 111/78 111/78 O2 Sat by Pulse 99 99 98 Oximetry 11/17/16 11/17/16 11/17/16 04:45 04:51 04:55 Temperature Pulse Rate 70 69 72 Respiratory 21 19 18 Rate Blood Pressure 112/76 112/76 112/76 O2 Sat by Pulse 99 99 99 Oximetry 11/17/16 11/17/16 11/17/16 05:00 05:05 05:11 Temperature Pulse Rate 82 77 81 Respiratory 19 18 20 Rate Blood Pressure 107/74 107/74 107/74 O2 Sat by Pulse 100 99 99 Oximetry 11/17/16 11/17/16 11/17/16 05:15 05:21 05:25 Temperature Pulse Rate 70 89 84 Respiratory 15 19 13 Rate Blood Pressure 112/79 112/79 112/79 O2 Sat by Pulse 99 96 97 Oximetry 11/17/16 11/17/16 11/17/16 05:30 05:35 05:41 Temperature Pulse Rate 69 70 81 Respiratory 17 19 24 Rate Blood Pressure 115/76 115/76 115/76 O2 Sat by Pulse 98 98 98 Oximetry 11/17/16 11/17/16 11/17/16 05:45 05:51 05:55 Temperature Pulse Rate 70 83 81 Respiratory 23 16 21 Rate Blood Pressure 107/76 107/76 107/76 O2 Sat by Pulse 98 99 100 Oximetry 11/17/16 11/17/16 11/17/16 06:00 06:05 06:11 Temperature Pulse Rate 85 77 69 Respiratory 20 20 20 Rate Blood Pressure 103/72 103/72 103/72 O2 Sat by Pulse 98 97 98 Oximetry 11/17/16 11/17/16 11/17/16 06:15 06:21 06:25 Temperature Pulse Rate 73 82 86 Respiratory 20 27 H 22 Rate Blood Pressure 113/78 113/78 113/78 O2 Sat by Pulse 98 98 97 Oximetry 11/17/16 11/17/16 11/17/16 06:30 06:35 06:41 Temperature Pulse Rate 71 70 82 Respiratory 23 23 22 Rate Blood Pressure 106/74 106/74 106/74 O2 Sat by Pulse 98 98 98 Oximetry 11/17/16 11/17/16 11/17/16 06:45 06:51 06:55 Temperature Pulse Rate 71 78 70 Respiratory 24 21 19 Rate Blood Pressure 105/71 105/71 105/71 O2 Sat by Pulse 98 99 98 Oximetry 11/17/16 11/17/16 11/17/16 07:00 07:05 07:11 Temperature Pulse Rate 83 93 H 73 Respiratory 17 22 13 Rate Blood Pressure 95/73 95/73 95/73 O2 Sat by Pulse 99 97 98 Oximetry 11/17/16 11/17/16 11/17/16 07:15 07:21 07:25 Temperature Pulse Rate 72 72 81 Respiratory 20 29 H 19 Rate Blood Pressure 101/72 101/72 101/72 O2 Sat by Pulse 96 98 98 Oximetry 11/17/16 11/17/16 11/17/16 07:30 08:00 08:26 Temperature 98.1 F Pulse Rate 80 68 Respiratory 29 H 21 Rate Blood Pressure 95/72 101/61 O2 Sat by Pulse 98 98 97 Oximetry 11/17/16 11/17/16 11/17/16 08:30 09:01 09:30 Temperature Pulse Rate 83 98 H 99 H Respiratory 15 22 27 H Rate Blood Pressure 95/66 116/68 96/65 O2 Sat by Pulse 99 Oximetry 11/17/16 11/17/16 11/17/16 10:00 10:31 11:00 Temperature Pulse Rate 95 H 87 94 H Respiratory 21 25 H 22 Rate Blood Pressure 92/71 92/63 89/67 O2 Sat by Pulse 93 98 Oximetry 11/17/16 12:00 Temperature 98.4 F Pulse Rate Respiratory Rate Blood Pressure O2 Sat by Pulse Oximetry Constitutional: no acute distress, alert Eyes: non-icteric ENT: oropharynx moist Neck: supple, no lymphadenopathy Effort: mildly labored Ascultation: Bilateral: clear, diminished breath sounds Cardiovascular: irregular rhythm Gastrointestinal: normoactive bowel sounds, soft, non-tender, non-distended Integumentary: normal Extremities: no cyanosis, no edema, pulses normal, no ischemia or petechiae Neurologic: normal mental status, non-focal exam, pupils equal and round, motor strength normal and Psychiatric: mood appropriate, affect normal CBC and BMP: 11/17/16 06:00 11/17/16 06:00 ABG, PT/INR, D-dimer: ABG POC ABG pH 7.360 (7.35-7.45) 11/14/16 18:49 POC ABG pCO2 38.8 (35-45) 11/14/16 18:49 POC ABG pO2 78 (80-105) L 11/14/16 18:49 POC ABG HCO3 21.9 11/14/16 18:49 POC ABG Total CO2 23 11/14/16 18:49 POC ABG O2 Sat 95 11/14/16 18:49 PT/INR, D-dimer PT 23.7 Sec. (12.2-14.9) H 11/17/16 06:00 INR 2.11 (0.87-1.13) H 11/17/16 06:00 Abnormal lab findings: Abnormal Labs 11/14/16 11/14/16 11/14/16 08:45 08:45 08:46 WBC RBC Hgb 11.5 L Hct 34.4 L RDW Plt Count 133 L Lymph % (Auto) [place] % (Auto) Lymph # [place] # Seg Neutrophils % Seg Neuts % (Manual) Lymphocytes % (Manual) Seg Neutrophils # Seg Neutrophils # Man Lymphocytes # (Manual) PT INR POC ABG pO2 Potassium Chloride Carbon Dioxide BUN 34 H Creatinine 1.6 H Glucose 171 H Lactic Acid Calcium AST ALT Serum Total Protein 6.0 L Total Protein Albumin 3.7 L Gamma Globulins 0.6 L PEP Interpretation see below H Urine WBC (Auto) Urine Creatinine 11/14/16 11/14/16 11/14/16 11:45 11:45 17:12 WBC RBC Hgb Hct RDW Plt Count Lymph % (Auto) [place] % (Auto) Lymph # [place] # Seg Neutrophils % Seg Neuts % (Manual) Lymphocytes % (Manual) Seg Neutrophils # Seg Neutrophils # Man Lymphocytes # (Manual) PT INR POC ABG pO2 Potassium Chloride Carbon Dioxide BUN Creatinine Glucose Lactic Acid 2.10 H* Calcium AST ALT Serum Total Protein Total Protein Albumin Gamma Globulins PEP Interpretation Urine WBC (Auto) 21.0 H Urine Creatinine 148.5 H 11/14/16 11/15/16 11/15/16 18:49 05:20 05:20 WBC 12.4 H RBC 3.46 L Hgb 10.4 L Hct 32.5 L RDW 15.3 H Plt Count 124 L Lymph % (Auto) 6.1 L [place] % (Auto) 7.8 H Lymph # 0.8 L [place] # 1.0 H Seg Neutrophils % 86.1 H Seg Neuts % (Manual) Lymphocytes % (Manual) Seg Neutrophils # 10.7 H Seg Neutrophils # Man Lymphocytes # (Manual) PT 33.4 H INR 3.25 H POC ABG pO2 78 L Potassium Chloride Carbon Dioxide BUN Creatinine Glucose Lactic Acid Calcium AST ALT Serum Total Protein Total Protein Albumin Gamma Globulins PEP Interpretation Urine WBC (Auto) Urine Creatinine 11/15/16 11/16/16 11/16/16 05:20 08:09 08:09 WBC 16.9 H RBC 3.57 L Hgb 10.7 L Hct 33.4 L RDW 15.3 H Plt Count 139 L Lymph % (Auto) [place] % (Auto) Lymph # [place] # Seg Neutrophils % Seg Neuts % (Manual) 92.0 H Lymphocytes % (Manual) 5.0 L Seg Neutrophils # Seg Neutrophils # Man 15.5 H Lymphocytes # (Manual) 0.8 L PT 29.3 H INR 2.76 H POC ABG pO2 Potassium Chloride 107.6 H Carbon Dioxide 19 L BUN 29 H Creatinine Glucose 114 H Lactic Acid Calcium AST ALT Serum Total Protein Total Protein Albumin Gamma Globulins PEP Interpretation Urine WBC (Auto) Urine Creatinine 11/16/16 11/17/16 11/17/16 08:09 06:00 06:00 WBC 17.1 H RBC 3.56 L Hgb 10.7 L Hct 32.9 L RDW Plt Count Lymph % (Auto) 2.8 L [place] % (Auto) 9.6 H Lymph # 0.5 L [place] # 1.6 H Seg Neutrophils % 87.3 H Seg Neuts % (Manual) Lymphocytes % (Manual) Seg Neutrophils # 15.0 H Seg Neutrophils # Man Lymphocytes # (Manual) PT 23.7 H INR 2.11 H POC ABG pO2 Potassium 5.1 H Chloride Carbon Dioxide 20 L BUN 23 H Creatinine Glucose 117 H Lactic Acid Calcium AST 46 H ALT 69 H Serum Total Protein Total Protein 6.1 L Albumin 3.8 L Gamma Globulins PEP Interpretation Urine WBC (Auto) Urine Creatinine 11/17/16 06:00 WBC RBC Hgb Hct RDW Plt Count Lymph % (Auto) [place] % (Auto) Lymph # [place] # Seg Neutrophils % Seg Neuts % (Manual) Lymphocytes % (Manual) Seg Neutrophils # Seg Neutrophils # Man Lymphocytes # (Manual) PT INR POC ABG pO2 Potassium Chloride Carbon Dioxide 20 L BUN Creatinine Glucose 106 H Lactic Acid Calcium 8.3 L AST ALT Serum Total Protein Total Protein Albumin Gamma Globulins PEP Interpretation Urine WBC (Auto) Urine Creatinine
--- NOTE | 2016-11-17 13:19 | Progress Note ---
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 patient previously declined ICD therapy. Prior CVA on warfarin as an outpatient INR 3.85 on presentation Sinus bradycardia with frequent PVCs and PACs pt remains asymptomatic normal TSH and Magnesium Recommendations: Resume medical therapy with BB and ACEi when BP allows. Subjective Date of service: 11/17/16 Principal diagnosis: Symptomatic Bradycardia; Acute COPD exacerbation; YURI Interval history: Patient has no cardiac complaints. Objective Vital Signs Temp Pulse Pulse Resp Resp BP Pulse Ox 11/17/16 12:00 98.4 F 11/17/16 11:00 94 H 22 89/67 11/17/16 10:31 87 25 H 92/63 98 11/17/16 10:00 95 H 21 92/71 93 11/17/16 09:30 99 H 27 H 96/65 11/17/16 09:01 98 H 22 116/68 11/17/16 08:30 83 15 95/66 99 11/17/16 08:26 97 11/17/16 08:00 98.1 F 68 21 101/61 98 11/17/16 07:30 80 29 H 95/72 98 11/17/16 07:25 81 19 101/72 98 11/17/16 07:21 72 29 H 101/72 98 11/17/16 07:15 72 20 101/72 96 11/17/16 07:11 73 13 95/73 98 11/17/16 07:05 93 H 22 95/73 97 11/17/16 07:00 83 17 95/73 99 11/17/16 06:55 70 19 105/71 98 11/17/16 06:51 78 21 105/71 99 11/17/16 06:45 71 24 105/71 98 11/17/16 06:41 82 22 106/74 98 11/17/16 06:35 70 23 106/74 98 11/17/16 06:30 71 23 106/74 98 11/17/16 06:25 86 22 113/78 97 11/17/16 06:21 82 27 H 113/78 98 11/17/16 06:15 73 20 113/78 98 11/17/16 06:11 69 20 103/72 98 11/17/16 06:05 77 20 103/72 97 07/06/17 06:00 85 20 103/72 98 07/06/17 05:55 81 21 107/76 100 07/06/17 05:51 83 16 107/76 99 07/06/17 05:45 70 23 107/76 98 07/06/17 05:41 81 24 115/76 98 07/06/17 05:35 70 19 115/76 98 07/06/17 05:30 69 17 115/76 98 07/06/17 05:25 84 13 112/79 97 07/06/17 05:21 89 19 112/79 96 07/06/17 05:15 70 15 112/79 99 07/06/17 05:11 81 20 107/74 99 07/06/17 05:05 77 18 107/74 99 07/06/17 05:00 82 19 107/74 100 07/06/17 04:55 72 18 112/76 99 07/06/17 04:51 69 19 112/76 99 07/06/17 04:45 70 21 112/76 99 07/06/17 04:41 72 25 H 111/78 98 07/06/17 04:35 92 H 18 111/78 99 07/06/17 04:30 66 25 H 111/78 99 07/06/17 04:25 68 22 120/78 98 07/06/17 04:21 80 24 120/78 98 07/06/17 04:15 63 24 120/78 99 07/06/17 04:11 76 20 109/38 98 07/06/17 04:05 83 22 109/38 98 07/06/17 04:01 85 18 109/38 98 07/06/17 04:00 98.6 F 07/06/17 03:55 73 20 101/74 98 07/06/17 03:51 69 18 101/74 98 07/06/17 03:45 68 14 110/78 99 07/06/17 03:41 67 17 99/77 98 07/06/17 03:35 71 18 99/77 99 07/06/17 03:30 76 18 99/77 99 07/06/17 03:25 73 24 102/72 99 07/06/17 03:21 76 17 102/72 99 07/06/17 03:15 77 18 101/74 99 07/06/17 03:11 82 20 102/72 99 07/06/17 03:05 74 23 102/72 99 07/06/17 03:00 72 16 102/72 98 07/06/17 02:55 74 21 122/80 98 07/06/17 02:51 80 18 122/80 98 07/06/17 02:45 82 17 118/89 98 07/06/17 02:41 69 18 122/80 98 07/06/17 02:35 69 19 122/80 98 07/06/17 02:30 80 24 122/80 98 07/06/17 02:25 80 20 120/75 98 07/06/17 02:21 77 18 120/75 99 07/06/17 02:15 87 20 120/75 99 07/06/17 02:11 81 20 104/78 99 07/06/17 02:05 76 22 104/78 99 07/06/17 02:00 68 21 104/78 99 07/06/17 01:55 75 18 111/75 100 07/06/17 01:51 77 21 111/75 99 07/06/17 01:45 82 19 126/81 100 07/06/17 01:41 76 18 126/81 99 07/06/17 01:35 70 18 126/81 99 07/06/17 01:30 73 19 126/81 99 07/06/17 01:25 68 18 121/82 99 07/06/17 01:21 80 17 121/82 98 07/06/17 00:00 98.1 F 100 07/05/17 23:45 76 24 107/74 99 07/05/17 23:41 73 20 114/74 99 07/05/17 23:35 74 25 H 114/74 98 07/05/17 23:30 79 25 H 114/74 100 07/05/17 23:25 74 21 107/73 98 07/05/17 23:21 85 21 107/73 99 07/05/17 23:15 74 13 107/73 100 07/05/17 23:11 78 24 100/70 99 07/05/17 23:05 78 22 100/70 100 07/05/17 23:00 82 21 100/70 99 07/05/17 22:55 74 19 111/71 99 07/05/17 22:51 96 H 25 H 111/71 100 07/05/17 22:45 79 19 111/71 100 11/16/16 22:41 93 H 11 L 103/71 99 11/16/16 22:35 75 23 103/71 98 11/16/16 22:30 77 21 103/71 100 11/16/16 22:25 83 22 102/69 100 11/16/16 22:21 78 21 102/69 100 11/16/16 22:15 77 26 H 102/69 98 11/16/16 22:11 77 18 101/70 98 11/16/16 22:05 80 23 101/70 98 11/16/16 22:00 80 24 101/70 99 11/16/16 21:55 84 16 117/76 98 11/16/16 21:51 85 20 117/76 99 11/16/16 21:45 88 20 117/76 98 11/16/16 21:41 78 23 118/75 99 11/16/16 21:35 101 H 28 H 118/75 98 11/16/16 21:30 97 H 27 H 118/75 100 11/16/16 21:25 80 30 H 79/34 97 11/16/16 21:21 98/74 90 11/16/16 21:15 90 21 98/74 100 11/16/16 21:11 108 H 32 H 95/63 96 11/16/16 21:05 78 22 95/63 100 11/16/16 21:00 75 22 95/63 100 11/16/16 20:55 102 H 27 H 94/57 100 11/16/16 20:51 74 24 94/57 100 11/16/16 20:45 83 15 94/57 100 11/16/16 20:41 100 H 18 94/57 100 11/16/16 20:35 73 18 94/57 100 11/16/16 20:34 78 18 11/16/16 20:30 66 24 94/57 100 11/16/16 20:25 78 20 105/68 100 11/16/16 20:21 64 17 105/68 100 11/16/16 20:15 54 L 11 L 100/62 100 11/16/16 20:14 51 L 14 100 05 20:11 53 L 11 L 113/67 100 07 20:05 51 L 14 113/67 100 11/16/16 20:00 60 16 113/67 98 11/16/16 19:55 52 L 24 105/68 100 11/16/16 19:51 67 22 105/68 100 11/16/16 19:45 98.5 F 53 L 23 105/68 100 11/16/16 19:41 53 L 22 103/62 100 11/16/16 18:00 88 29 H 105/65 100 11/16/16 17:55 75 14 111/70 100 11/16/16 17:51 75 17 111/70 100 11/16/16 17:45 72 19 111/70 100 11/16/16 17:41 70 20 115/64 100 11/16/16 17:36 70 19 115/64 100 11/16/16 17:30 66 17 116/74 100 11/16/16 17:26 76 14 116/74 100 11/16/16 17:20 57 L 19 116/74 100 11/16/16 17:15 66 20 116/74 100 11/16/16 17:10 74 17 115/78 100 11/16/16 17:05 76 22 115/78 100 11/16/16 17:00 54 L 10 L 115/78 100 11/16/16 16:56 66 8 L 122/68 100 11/16/16 16:50 63 14 122/68 73 L 11/16/16 16:45 49 L 18 122/68 99 11/16/16 16:41 47 L 16 119/68 100 11/16/16 16:35 56 L 18 119/68 98 11/16/16 16:30 46 L 21 119/68 97 11/16/16 16:25 58 L 18 118/70 97 11/16/16 16:20 54 L 19 118/70 96 11/16/16 16:15 50 L 17 118/70 100 11/16/16 16:10 50 L 22 111/86 100 11/16/16 16:05 64 21 111/86 99 11/16/16 16:01 68 24 111/86 95 05 16:00 97.9 F 100 11/16/16 15:55 60 23 80/42 100 05 15:50 56 L 26 H 80/42 98 05 15:45 63 29 H 80/42 98 05/17 15:40 76 18 92 07/05/17 15:36 64 25 H 97 11/16/16 15:30 70 27 H 100 11/16/16 15:26 65 27 H 11/16/16 15:20 56 L 19 72 L 11/16/16 15:18 84 11/16/16 14:54 62 18 11/16/16 14:47 99 11/16/16 14:45 61 18 11/16/16 14:40 54 L 18 79/51 99 11/16/16 14:36 71 13 79/51 99 11/16/16 14:30 58 L 16 86/53 98 11/16/16 14:15 52 L 17 86/53 99 11/16/16 14:00 71 19 86/56 95 11/16/16 13:45 60 17 86/56 100 11/16/16 13:30 84 15 85/54 85 - Physical Examination General: No Apparent Distress HEENT: Positive: PERRL Neck: Positive: trachea midline Cardiac: Positive: Reg Rate and Rhythm - Labs and Meds Coagulation 11/17/16 Range/Units 06:00 PT 23.7 H (12.2-14.9) Sec. INR 2.11 H (0.87-1.13) CBC 11/17/16 Range/Units 06:00 WBC 17.1 H (4.5-11.0) K/mm3 RBC 3.56 L (3.65-5.03) M/mm3 Hgb 10.7 L (11.8-15.2) gm/dl Hct 32.9 L (35.5-45.6) % Plt Count 141 (140-440) K/mm3 Lymph # 0.5 L (1.2-5.4) K/mm3 [place] # 1.6 H (0.0-0.8) K/mm3 Eos # 0.0 (0.0-0.4) K/mm3 Baso # 0.0 (0.0-0.1) K/mm3 Comprehensive Metabolic Panel 11/14/16 11/17/16 Range/Units 08:46 06:00 Sodium 138 (137-145) mmol/L Potassium 4.4 (3.6-5.0) mmol/L Chloride 105.0 (98-107) mmol/L Carbon Dioxide 20 L (22-30) mmol/L BUN 20 (9-20) mg/dL Creatinine 1.0 (0.8-1.5) mg/dL Glucose 106 H (75-100) mg/dL Calcium 8.3 L (8.4-10.2) mg/dL Albumin 3.7 L (3.8-4.8) g/dL
[2016-11-17] MEDS ORDERED: ROCEPHIN/NS 1 GM/50 ML 1 GM/50 ML BAG IV SCH ×3 (20:00→21:00)
[2016-11-17] MEDS: ZOCOR PO SCH (21:09)
[2016-11-17] MEDS: LOVENOX SUB-Q SCH (21:09)
[2016-11-18] MEDS: PROAMATINE PO SCH (06:12)
[2016-11-18 06:19] LABS: Hemoglobin 11.4 gm/dl (11.8-15.2); Mean Corpuscular HGB Conc 33 % (32-34); Mean Corpuscular Hemoglobin 30 pg (28-32); Mean Corpuscular Volume 93 fl (84-94); Platelet Count 148 K/mm3 (140-440); Red Blood Count 3.75 M/mm3 (3.65-5.03); Red Cell Distribution Width 15.2 % (13.2-15.2); White Blood Count 17.1 K/mm3 (4.5-11.0)
[2016-11-18 06:29] LABS: INR 1.4 (0.87-1.13)
[2016-11-18 06:39] LABS: Anion Gap 19 mmol/L; BUN/Creatinine Ratio 20.83; Blood Urea Nitrogen 25 mg/dL (9-20); Calcium 8.9 mg/dL (8.4-10.2); Carbon Dioxide 23 mmol/L (22-30); Chloride 100.7 mmol/L (98-107); Glucose 109 mg/dL (75-100); Potassium 5.2 mmol/L (3.6-5.0); Sodium 137 mmol/L (137-145)
[2016-11-18 07:03] LABS: Anisocytosis 2+; Basophils % (Manual) 0 % (0.0-1.8); Blastocytes % (Manual) 0 %; Elliptocytes 1+; Eosinophils % (Manual) 0 % (0.0-4.3)
[2016-11-18 07:04] LABS: Crenated RBC Few; Diff Status Complete; Rouleaux Rare; Schistocytes Rare
[2016-11-18] MEDS: DUONEB *Not for PRN Use IH SCH (08:23)
[2016-11-18] MEDS: BROVANA NEBU IH SCH (08:24)
--- NOTE | 2016-11-18 09:08 | Discharge Summary ---
Providers - Providers Date of Admission: 11/14/16 02:20 Attending physician: KIMBERLY AGUILAR MD 11/14/16 02:38 Consult to Physician [CONS] Routine Consulting Provider: JOSÉ MIGUEL MYERS Reason For Exam: RENAL FAILURE Place consult to:: JOSÉ MIGUEL MYERS Notified:: Pasquale If yes, spoke with:: yes 11/14/16 03:06 Consult to Physician [CONS] Routine Consulting Provider: SHAKILA GRISSOM Reason For Exam: HYPOTENSION WITH BRADYCARDIA Place consult to:: SHAKILA GRISSOM Notified:: Yes If yes, spoke with:: Answering Service 11/14/16 06:35 Consult to Physician [CONS] Routine Consulting Provider: JOSE GARCIA Reason For Exam: BRADYCARDIA,SOB AND CHF Place consult to:: JOSE GARCIA Notified:: Yes If yes, spoke with:: Violeta Primary care physician: E COMMERCE DIRECTOR Hospitalization Condition: Fair Hospital course: 71-year-old male with a past medical history of CHF, EF 25%, who presented with 3 days or shortness of breath. Cardiogenic shock He was IV pressors and then transitioned oral Midodrin, his BP improved , He was seen in conjuction with cardiology, His cardiac meds were dc due to hypotension, he will fup with [facility] cardiology as an outpatient and they may be restarted if BP allows for it Acute on chronic systolic CHF Cardiology input appreciated, patient has refused ICD, Plan was to put him on beta tito and TYLOR inhibitor however his blood pressure being low and he is unable to tolerate it. Outpatient fup with Cardiology Acute on chronic kidney injury/vasomotor nephropathy He was seen in conjunction with nephrology, most likely due to hypoperfusion. His renal function improved with IV fluids and IV pressors. His creatinine was normal at the time of discharge Bradycardia All beta blockers and AV imtiaz blockers were discontinued. His heart rate stabilized COPD exacerbation He was seen in conjunction with pulmonology, he received steroids and nebulizers and antibiotics He is being discharged home on a steroid taper and an inhaler., Shortness of breath was resolved at time of discharge UTI was ruled out with negative urine cultures Bladder mass? Questionable bladder mass seen on ultrasound and noncontrast CT of his abdomen and pelvis. Patient was planned for MRI of his pelvis, but he refuses further intervention or evaluation. He stated that "I am 71 years old, I have end- stage heart failure, I don't plan to have any surgeries any chemotherapy or radiation. If I have cancer I do not want to know about it." DF for further work up was aborted per his request History of stroke with right hemiparesis He was continued on aspirin and Plavix for secondary stroke prophylaxis, warfarin restarted at time of discharge secondary Coagulopathy INR was supratherapeutic at time of presentation, and if the warfarin was held, warfarin was resumed prior to discharge. Disposition: DC-01 TO HOME OR SELFCARE Time spent for discharge: 33 minutes Core Measure Documentation - Palliative Care Palliative Care/ Comfort Measures: Not Applicable - Core Measures Any of the following diagnoses?: heart failure - Heart Failure Discharge Requirements TYLOR/ARB for LVSD if EF <40%: No Reason for no TYLOR/ARB: Hypotension Beta tito at discharge: No Reason for no beta tito on DC: Hypotension Exam - Physical Exam Narrative exam: General: , cachectic HEENT: MMM, EOMI cardiac: S1-S2 heard lungs: CTA abdomen: soft, nontender, nondistended bowel sounds positive extremities: no edema clubbing or cyanosis Skin: no rash or lesion Neuro: Right hemiparesis Psych: appropriate behavior and mood, cognition intact - Constitutional Vitals: Temp Pulse Resp BP Pulse Ox 98.6 F 81 20 98/69 96 11/18/16 05:30 11/18/16 05:30 11/18/16 05:30 11/18/16 05:30 11/18/16 05:30 Plan Additional Instructions: Please have your INR checked in 3-4 days, 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
[2016-11-18] MEDS: PEPCID PO SCH (09:32)
[2016-11-18 10:03] VITALS: BP 108/73
--- NOTE | 2016-11-18 11:50 | Progress Note ---
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 patient previously declined ICD therapy. Prior CVA on warfarin as an outpatient INR 3.85 on presentation Sinus bradycardia with frequent PVCs and PACs pt remains asymptomatic normal TSH and Magnesium Recommendations: Not on BB and ACEi due to low BP Evalute as OP . Subjective Date of service: 11/18/16 Principal diagnosis: Symptomatic Bradycardia; Acute COPD exacerbation; YURI Interval history: doing better Objective Vital Signs Temp Pulse Pulse Pulse Pulse Pulse Pulse 11/18/16 10:53 77 11/18/16 10:01 98.6 F 75 60 75 60 11/18/16 09:55 64 11/18/16 05:30 98.6 F 81 81 81 81 11/18/16 00:00 98.7 F 80 80 80 80 11/17/16 22:31 83 11/17/16 20:00 98.6 F 80 80 80 80 11/17/16 18:33 98.8 F 76 11/17/16 16:00 97.5 F L 11/17/16 13:01 103 H 11/17/16 12:30 91 H 11/17/16 12:01 124 H 11/17/16 12:00 98.4 F Resp Resp BP BP Pulse Ox 11/18/16 10:53 11/18/16 10:01 18 108/73 100 11/18/16 09:55 18 100 11/18/16 05:30 20 98/69 96 11/18/16 00:00 20 93/65 97 11/17/16 22:31 16 11/17/16 20:00 20 103/65 99 11/17/16 18:33 18 134/58 96 11/17/16 16:00 98 11/17/16 13:01 21 101/58 11/17/16 12:30 22 104/81 11/17/16 12:01 18 109/73 11/17/16 12:00 - Physical Examination Narrative exam: GEN: NAD HEENT: Carotids 2+ NECK: SUPPLE, CVS: RRR, NORMAL S1S2 LUNGS/CHEST: CTA ABD: SOFT, MSK: FROM X 4 EXTREMITIES NEURO: CN 2-12 GROSSLY INTACT, NO FOCAL DEFICITS PSY: CALM General: No Apparent Distress HEENT: Positive: PERRL Neck: Positive: trachea midline Neuro: Positive: Grossly Intact Abdomen: Positive: Soft, Active Bowel Sounds Extremities: Present: normal - Labs and Meds Coagulation 11/18/16 Range/Units 05:54 PT 17.9 H (12.2-14.9) Sec. INR 1.40 H (0.87-1.13) CBC 11/18/16 Range/Units 05:54 WBC 17.1 H (4.5-11.0) K/mm3 RBC 3.75 (3.65-5.03) M/mm3 Hgb 11.4 L (11.8-15.2) gm/dl Hct 35.0 L (35.5-45.6) % Plt Count 148 (140-440) K/mm3 Comprehensive Metabolic Panel 11/18/16 Range/Units 05:54 Sodium 137 (137-145) mmol/L Potassium 5.2 H (3.6-5.0) mmol/L Chloride 100.7 (98-107) mmol/L Carbon Dioxide 23 (22-30) mmol/L BUN 25 H (9-20) mg/dL Creatinine 1.2 (0.8-1.5) mg/dL Glucose 109 H (75-100) mg/dL Calcium 8.9 (8.4-10.2) mg/dL
== END 2016-11-18 12:20 | disposition home or self-care (01) | DRG 682 ==
LOC: ED 21:20 → 4A 11-14 02:20 → CC1 11-14 03:19 → 4A 11-17 16:51
PROVIDERS: ADMIT Internal Medicine; ATTEND Internal Medicine
PROC: 4A033R1 Measurement of Arterial Saturation, Peripheral, Percutaneous Approach (ICD-10-PCS; principal; 2016-11-14)
PROC: 06HM33Z Insertion of Infusion Device into Right Femoral Vein, Percutaneous Approach (ICD-10-PCS; 2016-11-14)
DX: N17.0 Acute kidney failure with tubular necrosis (principal); I50.23 Acute on chronic systolic (congestive) heart failure; R57.0 Cardiogenic shock; J96.00 Acute respiratory failure, unspecified whether with hypoxia or hypercapnia; I13.0 Hypertensive heart and chronic kidney disease with heart failure and stage 1 through stage 4 chronic kidney disease, or unspecified chronic kidney disease; J44.1 Chronic obstructive pulmonary disease with (acute) exacerbation; D68.9 Coagulation defect, unspecified; N39.0 Urinary tract infection, site not specified; I42.0 Dilated cardiomyopathy; I69.951 Hemiplegia and hemiparesis following unspecified cerebrovascular disease affecting right dominant side; Z53.29 Procedure and treatment not carried out because of patient's decision for other reasons; N32.9 Bladder disorder, unspecified; I95.9 Hypotension, unspecified; I49.3 Ventricular premature depolarization; E78.00 Pure hypercholesterolemia, unspecified; F17.210 Nicotine dependence, cigarettes, uncomplicated; I48.91 Unspecified atrial fibrillation; Z79.899 Other long term (current) drug therapy
CPT/HCPCS: 36415; 36600; 71020; 74176; 76770; 80048; 80074; 81001; 82140; 82550; 82553; 82570; 82803; 83735; 83880; 84100; 84165; 84300; 84443; 84484; 85007; 85025; 85027; 85610; 85730; 86021; 86140; 86160; 87040; 87086; 87205; 89050; 93005; 93010; 93306; 94640; 94760; 99285; J0696; J1644; J1650; J2920; J7030; J7050; J7512

== ENCOUNTER 2017-06-13 11:20 | Emergency (ER) | payer MEDICARE ==
--- NOTE | 2017-06-13 13:17 | XRay Report ---
ROUTINE CHEST, TWO VIEWS: HISTORY: Shortness of breath. There is mild cardiomegaly which appears to be new since 11/13/16. Pulmonary vascularity is within normal limits. The aorta is markedly ectatic which has not significantly changed. The lungs are mildly hyperinflated but clear. There may be mild emphysematous changes. No pleural effusion or pneumothorax. The bony structures are intact. IMPRESSION: Cardiomegaly. Ectatic aorta. Mild hyperinflation, correlate for history of smoking.
[2017-06-13 13:31] LABS: BUN/Creatinine Ratio 23; Blood Urea Nitrogen 23 mg/dL (9-20); Calcium 8.6 mg/dL (8.4-10.2); Hemolysis Index 7
[2017-06-13 13:41] LABS: Hematocrit 38.3 % (35.5-45.6); Hemoglobin 12.3 gm/dl (11.8-15.2); Mean Corpuscular HGB Conc 32 % (32-34); Mean Corpuscular Hemoglobin 30 pg (28-32); Mean Corpuscular Volume 92 fl (84-94); Red Blood Count 4.19 M/mm3 (3.65-5.03)
[2017-06-13 14:43] LABS: Band Neutrophils # (Manual) 0.3 K/mm3; Basophils % (Manual) 0 % (0.0-1.8); Eosinophils % (Manual) 0 % (0.0-4.3); Monocytes % (Manual) 16 % (0.0-7.3); Total Cells Counted 100
[2017-06-13 14:44] LABS: Anisocytosis 2+; Poikilocytosis 2+; Schistocytes Rare
[2017-06-13 14:45] LABS: Burr Cells Few; Ovalocytes 1+
[2017-06-13 14:50] LABS: Platelet Count 119 K/mm3 (140-440)
[2017-06-13] MEDS ORDERED: TORADOL IV ONE (16:30)
[2017-06-13] MEDS ORDERED: NACL 0.9% 1000 ML 1,000 ML IV ONE (16:32)
--- NOTE | 2017-06-13 16:39 | Emergency Department Report ---
ED Back Pain/Injury HPI - General Chief Complaint: Pain General Stated Complaint: R SIDE PAIN Time Seen by Provider: 06/13/17 16:10 Source: patient Limitations: No Limitations - History of Present Illness Initial Comments: Patient said last Monday he started having neck pain radiating all the way to his back. It was of severe intensity consistently aching with no aggravating or relieving factors. Patient also complained of right-sided flank pain also moderate to severe intensity and nonradiating with no aggravating or relieving factors. He states that the pain is progressively gotten worse as such she decided to come into the emergency room. He also sees since Monday's been constipated. No history of any trauma. Onset/Timin -: Gradual - Related Data Home Medications Medication Instructions Recorded Confirmed Last Taken Ranitidine HCl [Zantac 300 MG TAB] 150 tab PO BID 12/17/14 11/13/16 Unknown Previous Rx's Medication Instructions Recorded Last Taken Type Simvastatin 1 tab PO HS 30 Days tablet 10/15/13 03/05/14 Rx Ipratropium/Albuterol Sulfate 1 spray IH QID #1 aer.w.adap 11/18/16 Unknown Rx [Combivent Respimat] Midodrine [Proamatine] 10 mg PO Q8H #90 tablet 11/18/16 Unknown Rx Prednisone [predniSONE 5 mg (6-Day 5 mg PO .TAPER #1 tab.ds.pk 11/18/16 Unknown Rx Pack, 21 Tabs)] Warfarin Sodium [Coumadin] 4 mg PO QDAY #10 tablet 11/18/16 Unknown Rx Allergies Allergy/AdvReac Type Severity Reaction Status Date / Time No Known Allergies Allergy Verified 12/17/14 21:26 ED Review of Systems ROS: Stated complaint: R SIDE PAIN Other details as noted in HPI Comment: All other systems reviewed and negative ED Past Medical Hx - Past Medical History Previous Medical History?: Yes Hx Hypertension: Yes Hx CVA: Yes Hx Congestive Heart Failure: Yes Hx Diabetes: No Hx Deep Vein Thrombosis: No Hx Pulmonary Embolism: No Hx Asthma: No Hx COPD: No Hx HIV: No Additional medical history: high chol - Surgical History Past Surgical History?: Yes Additional Surgical History: eye Sx - Social History Smoking Status: Current Every Day Smoker Substance Use Type: Prescribed - Medications Home Medications: Home Medications Medication Instructions Recorded Confirmed Last Taken Type Simvastatin 1 tab PO HS 30 Days tablet 10/15/13 11/13/16 03/05/14 Rx Ranitidine HCl [Zantac 300 MG TAB] 150 tab PO BID 12/17/14 11/13/16 Unknown History Ipratropium/Albuterol Sulfate 1 spray IH QID #1 aer.w.adap 11/18/16 Unknown Rx [Combivent Respimat] Midodrine [Proamatine] 10 mg PO Q8H #90 tablet 11/18/16 Unknown Rx Prednisone [predniSONE 5 mg (6-Day 5 mg PO .TAPER #1 tab.ds.pk 11/18/16 Unknown Rx Pack, 21 Tabs)] Warfarin Sodium [Coumadin] 4 mg PO QDAY #10 tablet 11/18/16 Unknown Rx ED Physical Exam - General Limitations: No Limitations General appearance: alert, in no apparent distress - Head Head exam: Present: atraumatic, normocephalic - Eye Eye exam: Present: normal appearance, PERRL Pupils: Present: normal accommodation - ENT ENT exam: Present: mucous membranes moist - Neck Neck exam: Present: normal inspection - Respiratory Respiratory exam: Present: normal lung sounds bilaterally. Absent: respiratory distress - Cardiovascular Cardiovascular Exam: Present: regular rate, normal rhythm. Absent: systolic murmur, diastolic murmur, rubs, gallop - GI/Abdominal GI/Abdominal exam: Present: soft, tenderness (epigastric tenderness), normal bowel sounds, other (tenderness to palpation of the right flank area) - Rectal Rectal exam: Present: deferred - Extremities Exam Extremities exam: Present: normal inspection - Back Exam Back exam: Present: normal inspection - Neurological Exam Neurological exam: Present: alert, oriented X3 - Psychiatric Psychiatric exam: Present: normal affect, normal mood - Skin Skin exam: Present: warm, dry, intact, normal color. Absent: rash ED Course Vital Signs 06/13/17 06/13/17 06/13/17 12:18 16:30 17:30 Temperature 97.6 F Pulse Rate 98 H 100 H 103 H Respiratory 20 38 H 44 H Rate Blood Pressure 129/86 Blood Pressure 122/77 [Left] O2 Sat by Pulse 94 95 Oximetry 06/13/17 06/13/17 06/13/17 17:46 18:00 18:16 Temperature Pulse Rate 103 H 91 H 83 Respiratory 26 H 19 28 H Rate Blood Pressure 114/65 Blood Pressure [Left] O2 Sat by Pulse Oximetry 06/13/17 06/13/17 06/13/17 18:30 18:46 18:49 Temperature Pulse Rate 111 H 97 H 91 H Respiratory 22 25 H Rate Blood Pressure 114/65 114/65 125/75 Blood Pressure [Left] O2 Sat by Pulse Oximetry 06/13/17 06/13/17 06/13/17 18:53 19:00 19:16 Temperature Pulse Rate 91 H 82 93 H Respiratory 38 H 29 H 30 H Rate Blood Pressure 108/61 108/61 Blood Pressure 114/65 [Left] O2 Sat by Pulse Oximetry 06/13/17 06/13/17 06/13/17 19:30 19:45 20:11 Temperature Pulse Rate 100 H 87 121 H Respiratory 18 14 20 Rate Blood Pressure 108/61 108/61 108/61 Blood Pressure [Left] O2 Sat by Pulse Oximetry 06/13/17 06/13/17 06/13/17 20:16 20:30 20:46 Temperature Pulse Rate 104 H 98 H 99 H Respiratory 44 H 28 H 21 Rate Blood Pressure 108/61 108/61 108/61 Blood Pressure [Left] O2 Sat by Pulse Oximetry 06/13/17 06/13/17 06/13/17 21:00 21:16 21:30 Temperature Pulse Rate 109 H 89 88 Respiratory 29 H 30 H 30 H Rate Blood Pressure 112/72 106/76 106/76 Blood Pressure [Left] O2 Sat by Pulse Oximetry 06/13/17 06/13/17 06/13/17 21:46 22:08 22:16 Temperature Pulse Rate 124 H 124 H 101 H Respiratory 46 H 26 H 23 Rate Blood Pressure 106/76 106/76 129/100 Blood Pressure [Left] O2 Sat by Pulse Oximetry - Reevaluation(s) Reevaluation #1: 06/13/17 22:49 Patient's pain is much better ED Medical Decision Making - Lab Data Result diagrams: 06/13/17 13:01 06/13/17 13:01 - EKG Data -: EKG Interpreted by Ok EKG shows normal: sinus rhythm (at rate of 107), axis (normal), intervals ( normal), QRS complexes (normal), ST-T waves (nonspecific ST and T-wave changes) Rate: tachycardia (sinus tachycardia with frequent PVCs) - Medical Decision Making I spoke to Dr. Chapin is a vascular surgeon about the patient's CT of the abdomen and pelvis which was done without contrast and was showing an aortic size of 4.5 cm. He suggested doing it with IV contrast. The CT abdomen and pelvis with IV contrast and a CT angio of the chest was done. I was called by Dr. 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 And that it was difficult to properly assess the aortic arch due to protocol CTA poor quality. I also spoke to teleradiology about this and he also confirmed the findings. He also suggested that the patient has some retroperitoneal adenopathy. He did not feel that a pelvic mass which was seen on the CT abdomen and pelvis was an hematoma. I later spoke to Dr. Xiao in [place] and he as accepted the patient for transfer Critical Care Time: Yes Critical care time in (mins) excluding proc time.: 75 Critical care attestation.: If time is entered above; I have spent that time in minutes in the direct care of this critically ill patient, excluding procedure time. This includes time spent talking to specialist the radiologist and also reviewing his labs Critical Care Time: 75 min ED Disposition Clinical Impression: Aortic dissection, Pelvic mass in male Disposition: DC/TX-70 ANOTHER TYPE HLTHCARE Is pt being admited?: No Does the pt Need Aspirin: No Condition: Stable Referrals: PRIMARY CARE, [Primary Care Provider] - 3-5 Days
[2017-06-13] MEDS ORDERED: LOPRESSOR IV ONE ×2 (16:49→16:50)
[2017-06-13 17:07] LABS: Magnesium 2.1 mg/dL (1.7-2.3)
[2017-06-13 17:39] LABS: Chol/HDL Ratio 2.28 %
[2017-06-13 17:46] LABS: Bacteria,Urine 1+ /HPF (Negative); Bilirubin,Urine NEG (Negative); Blood,Urine MOD (Negative); Color,Urine Yellow (Yellow); Mucus,Urine 2+ /HPF; Nitrite,Urine NEG (Negative)
--- NOTE | 2017-06-13 18:07 | Cat Scan Report ---
FINAL REPORT EXAM: CT ABDOMEN PELVIS WO CON HISTORY: right flank pain TECHNIQUE: Unenhanced stone protocol CT of the abdomen and pelvis at 5.0 millimeter axial increments. Coronal and sagittal reconstruction was also performed. PRIORS: None. FINDINGS: There is no evidence for renal calculi or hydronephrosis. No evidence for ureteral or bladder calculus is seen. No evidence for renal or bladder mass is noted. Both kidneys demonstrate numerous rounded well-defined hypodensities, probably cysts. The largest is in the medial posterior right kidney measuring 2.9 x 2.5 cm. (Axial image 29). There is a large well-defined ovoid soft tissue mass filling much of the right pelvis measuring 9.4 x 11.5 x 12.2 cm (axial image 53, sagittal image 12). Etiology is difficult to discern without the benefit of any intravenous or oral contrast. This displaces the compressed bladder to the left pelvis. The aortic bifurcation is displaced to the right of midline and the left right common iliac artery is displaced anteriorly. The colon appears separate. Otherwise, within the limits of a noncontrast exam, the liver demonstrates several small subcentimeter rounded hypodensities, probably cysts, but too small to characterize. The spleen, pancreas, gallbladder, and adrenal glands are unremarkable. No evidence for retroperitoneal or pelvic lymphadenopathy is seen. The bowel loops have normal caliber. No fluid collection, inflammatory change, or free air is seen within the abdomen or pelvis. The aorta is tortuous and ectatic. At the level of the diaphragmatic hiatus, the aorta measures 4.9 x 4.5 cm (axial image 11). There is moderate calcification of the aorta and common iliac arteries. Within the pelvis, the prostate is normal. Images through the upper abdomen include the lung bases which demonstrate small bilateral pleural effusions. Bony structures show demonstrate severe disc space narrowing from L3 through S1. Bilateral facet joint degenerative changes at these levels is also noted. IMPRESSION: 1. No evidence for renal calculi or renal obstruction. Multiple rounded hypodensities in the kidneys bilaterally suggest cysts 2. Large soft tissue mass filling the right pelvis, etiology of which is uncertain. Placement of surrounding structures including the bladder, aortic bifurcation, and right common iliac artery is noted. 3. Multiple hypodensities in the liver, likely cysts. 4. Ectasia and tortuosity of the aorta. Maximum diameter is 4.9 cm at the level of the diaphragm. 5. Small bilateral pleural effusions
[2017-06-13] MEDS ORDERED: BACTRIM DS PO ONE (18:17)
--- NOTE | 2017-06-13 21:04 | Event Note ---
Date: 06/13/17 Initially consulted for Aortic ectasia. A CTA of the C/A/P was then preformed. The timing of the bolus does not opacify the ascending aorta,arch or proximal descending aorta secondary to cardiac disfunction. The patient has a dissection (not seen in 2014) that extends from the visualized descending aorta to the level of the renal arteries. Uncertain if it extends more proximally. The celiac arises from the true lumen and the SMA from the false lumen. 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 Given the patients clinical etiology, he will need blood pressure control and transfer to a facility with the ability to preform fenestrated thoracic endografts. He will also need imaging of the arch to determine the proximal involvement.
--- NOTE | 2017-06-13 21:35 | Cat Scan Report ---
FINAL REPORT PROCEDURE: CT ABDOMEN PELVIS W CON TECHNIQUE: Computerized axial tomography of the abdomen and pelvis was performed after the IV injection of iodinated nonionic contrast. HISTORY: aortic aneurysm, pelvic mass COMPARISON: No prior studies are available for comparison. FINDINGS: Visualized bilateral lungs are emphysematous. Mild degree bilateral pleural effusions are noted. There is moderate cardiomegaly. Liver demonstrates multiple cystic lesions largest measuring walker millimeters located in segment 6 of right lobe., and adrenal glands are within normal limits. Well-defined simple cysts are noted in bilateral kidneys largest measuring 2.5 centimeters located in the midpole right kidney. There is no obstructive uropathy. Urinary bladder is empty. There is no free fluid or free air. Gallbladder is partially distended and is unremarkable. Small bowel loops are within normal limits. Moderate degree residual stool is noted. Appendix is not distinctly visualized. There are no inflammatory changes in the pericecal region. Multiple in homogeneously enhancing mass lesions are identified in the pelvis largest measuring 11.5 x 8.9 centimeters eccentric to the right displacing the right iliac vessels anteriorly and medially. Aorta is grossly tortuous with evidence of a long segment dissection inferiorly extending up to the level of the renal arteries. Superiorly it is extending into thorax under its superior extent is not included in the study. Both lumens are opacified. Left-sided lumen is supplying bilateral renal arteries which appears to be the true lumen and continues into the distal aorta. Celiac artery is being supplied by the true lumen and superior mesenteric artery is being supplied by the false lumen. A tight stenosis is noted at the origin of the celiac artery. 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 Aorta measures 4 point 6 x 4.5 centimeters in maximal AP and transverse dimensions in the proximal portion and 2.9 x 2.8 centimeters in maximal transverse and AP dimensions in the distal portion. The aneurysmal involvement is extending into the proximal right common iliac artery. Disc space narrowing is identified from L3-4 to L5-S1. IMPRESSION: Chronic abdominal aortic dissection inferiorly extending up to the origins of renal. Superior extent is not included in the study. Abdominal aortic aneurysm as described above. It is extending into the right proximal common iliac artery. Moderate cardiomegaly with mild bilateral pleural effusions Emphysema Cystic lesions of liver are most likely of benign nature Multiple mass lesions in the pelvis most likely represent fibroids. Clinical correlation is recommended to rule out other etiologies such as lymphoma or ovarian carcinoma.
--- NOTE | 2017-06-13 21:58 | Cat Scan Report ---
FINAL REPORT PROCEDURE: CT ANGIO CHEST TECHNIQUE: Computerized tomographic angiography of the chest was performed after the IV injection of iodinated nonionic contrast including image processing. The image data was postprocessed using 2-dimensional multiplanar reformatted (MPR) and 3-dimensional (MIP and/or volume rendered) techniques. HISTORY: aortic dissection COMPARISON: CT abdomen pelvis with contrast FINDINGS: Heart and pericardium: Mildly enlarged Thoracic aorta: Ascending aortic aneurysm 4.8 x 4.3 centimeters. Descending aorta fusiform aneurysm is seen measuring 4.6 x 4.2 centimeters. There appears to be differential attenuation in the thoracic aorta which was not performed with aortic dissection protocol. Differential attenuation appears to extend from the proximal aortic arch down through the distal thoracic aorta suspicious for a complex dissection. Recommend followup aortic dissection protocol to further evaluate and confirm the thoracic aortic dissection. The current study is essentially nondiagnostic for evaluation of aortic dissection.. Pulmonary vasculature: No PE seen. Lymph nodes: No enlarged thoracic lymph nodes. Lungs: Diffuse pulmonary emphysema with blebs and bullous changes patchy infiltrate in the right lung base. Small bilateral pleural effusions Pleural space: No effusion, thickening, or pneumothorax. Musculoskeletal structures: No significant abnormality. Upper abdominal structures: Low attenuated lesions in the right lobe of liver smaller possibly left lobe possible cysts. Consider ultrasound correlation. Low to medium attenuated lesions in the kidney also possibly cyst which can be confirmed by ultrasound. IMPRESSION: Nondiagnostic CTA chest to evaluate for aortic dissection. All or the vast majority of contrast is in the pulmonary arteries on this study at this time. Despite the above there are differential attenuation findings of the thoracic aorta suspicious for a complex dissection. Furthermore in corroboration with this CT abdomen pelvis with IV contrast study there is certainly a dissection seen in the distal thoracic aorta on that study. Please see separate report in that regard. Followup is advised of this examination deficiency and of the suspicion of finding and the importance to perform a proper followup CTA chest dissection protocol. Findings discussed with Dr. Salcedo at 9:05 p.m. 06/13/2017
[2017-06-13 23:36] VITALS: BP 116/85
== END 2017-06-14 00:37 | disposition other institution (70) ==
LOC: ED 11:20
DX: I71.00 Dissection of unspecified site of aorta (principal); R19.07 Generalized intra-abdominal and pelvic swelling, mass and lump; I11.0 Hypertensive heart disease with heart failure; I50.9 Heart failure, unspecified; E78.00 Pure hypercholesterolemia, unspecified; F17.200 Nicotine dependence, unspecified, uncomplicated
CPT/HCPCS: 36415; 71046; 71275; 74176; 74177; 80048; 80061; 81001; 83735; 84100; 84484; 85007; 85025; 85379; 87076; 87086; 87186; 93005; 93010; 96361; 96374; 96375; 99291; 99292; J1885; J7030; Q9967